=== PATIENT | female | born 1980 | race Caucasian/White ===

== ENCOUNTER 2021-02-07 16:05 | Inpatient (IN) | payer MEDICARE ==
[~2021-02-07] VITALS: Ht 165.1 cm; Wt 79.4 kg
[2021-02-07] MEDS ORDERED: COLACE100 MG PO (16:09)
[2021-02-07] MEDS ORDERED: NEURONTIN 300300 MG PO (16:09)
[2021-02-07] MEDS ORDERED: NEXIUM40 MG PO (16:10)
[2021-02-07] MEDS ORDERED: METHOCARBAMOL500 MG PO (16:10)
--- NOTE | 2021-02-07 16:15 | NUR ---
PATIENT ADMITED VIA AMBULANCE TO E9. PATIENT ANSWERS QUESTIONS BUT INFORMATION IS ONLY PARTIAL AND CONTRIDICTS ABOUT CURRENT CARE AND CIRCUMSTANCES. SENIOR LIVING PRESSURE INJURY TO COCCYX ASSESSED. NO DRESSING IN PLACE. LARGE AREA OF REDNESS WITH 2CM/1.5CM OPEN AREA 0.5CM DEEP WITH SLOUGHING SKIN. WOUND CULTURE OBTAINED. CLEANED WITH WOUND CLEANSER AND SACRAL MEPILEX APPLIED. PERINEAL AREA CLEANED OF MENSTRUAL FLUIDS. POSITION ON BACK.
[2021-02-07 17:48] LABS: BASOPHILS 0.2 % (0-2); EOSINOPHILS 0.4 % (0-7); HEMOGLOBIN 13.2 g/dL (12-16); IMMATURE GRANULOCYTES 0.5 % (0-5); LYMPHOCYTE ABS# 2.39 10x3/uL (1.18-3.74); LYMPHOCYTES 23.5 % (15-50); MCH 30.5 pg (26.0-34.0); MCHC 33.8 g/dL (31.0-37.0); MCV 90.1 fL (80.0-100.0); MEAN PLATELET VOLUME 10.4 fL (7.4-10.4); MONOCYTES 6.3 % (2-11); NEUTROPHIL ABS# 7.03 10x3/uL (1.56-6.13); NEUTROPHILS 69.1 % (40-80); PLATELET COUNT 252 10x3/uL (130-400); RBC 4.33 10x6/uL (4.00-5.40); RDW 12.6 % (11.5-14.5); WBC 10.2 10x3/uL (4.8-10.8)
--- NOTE | 2021-02-07 17:50 | NUR ---
MEDICATED FOR 10/10 RIGHT FRONTAL HEADACHE WITH MORPHINE 2 MG AND TORADOL IV. SWABS FOR FLU A&B, RSV, AND STREP OBTAINED AND SENT TO LAB.
[2021-02-07 17:57] LABS: APTT 25.1 SECONDS (22.8-39.4); INR 1.33 (0.85-1.17); PROTIME 15.2 SECONDS (11.6-15.0)
--- NOTE | 2021-02-07 18:00 | NUR ---
INDWELLING OWENS CATHETER REMOVED. NEW 16F CATHETER INSERTED. SCANT URINE RETURNED. CLAMPED TO OBTAIN URINE SPECIMEN.
--- NOTE | 2021-02-07 18:10 | NUR ---
TO CT VIA WHEELCHAIR.
[2021-02-07 18:16] LABS: CALC OSMOLALITY 278 mosm/kg (275-300); CARBON DIOXIDE 22.3 mmol/L (21.0-32.0); CHLORIDE - SERUM 105 mmol/L (98-107); CREATININE - SERUM 0.5 mg/dL (0.6-1.3); GLUCOSE 106 mg/dL (74-106); POTASSIUM - SERUM 3.5 mmol/L (3.5-5.1); SODIUM 140 mmol/L (136-145); UREA NITROGEN 12 mg/dL (7-18); eGFR NON AFRICAN AMERICAN > 90 mL/min (90-120)
[2021-02-07 18:19] LABS: ALBUMIN 3.5 g/dL (3.4-5.0); ALKALINE PHOSPHATASE 56 U/L (30-120); ALT (SGPT) 27 U/L (10-68); BILIRUBIN - TOTAL 0.73 mg/dL (0.2-1.3); MAGNESIUM - SERUM 2.1 mg/dL (1.8-2.4)
--- NOTE | 2021-02-07 18:30 | NUR ---
C/O RECURRENT HEADACHE 08/30. DR GREENBERG INFORMED. REPEAT DOSE OF MS 2MG ORDERED.
--- NOTE | 2021-02-07 18:55 | NUR ---
MS 2MG GIVEN IVP.
[2021-02-07 20:39] LABS: BILIRUBIN NEGATIVE (NEGATIVE); KETONE SMALL mg/dL (NEGATIVE); NITRITE NEGATIVE (NEGATIVE); UROBILINOGEN NORMAL mg/dL (< 2)
[2021-02-07 20:40] LABS: HCG URINE NEGATIVE (NEGATIVE)
[2021-02-07 20:43] LABS: BACTERIA FEW HPF (NONE SEEN); SQUAMOUS EPITHELIAL 0-5 HPF (0-4); WHITE CELLS - URINE 0-5 HPF (0-4)
--- NOTE | 2021-02-07 22:39 | NUR ---
REPORT GIVEN. ASSESSMENT COMPLETE. NO S/S OF DITRESS. LYING SUPINE. CLIR.
[2021-02-08 05:35] LABS: BASOPHILS 0.2 % (0-2); EOSINOPHILS 1.4 % (0-7); HEMATOCRIT 40.7 % (36.0-48.0); HEMOGLOBIN 13.4 g/dL (12-16); IMMATURE GRANULOCYTES 0.1 % (0-5); LYMPHOCYTES 35.9 % (15-50); MCH 29.9 pg (26.0-34.0); MCHC 32.9 g/dL (31.0-37.0); MCV 90.8 fL (80.0-100.0); MEAN PLATELET VOLUME 10.1 fL (7.4-10.4); MONOCYTES 6.7 % (2-11); NEUTROPHIL ABS# 5.12 10x3/uL (1.56-6.13); NEUTROPHILS 55.7 % (40-80); RBC 4.48 10x6/uL (4.00-5.40); RDW 12.7 % (11.5-14.5); WBC 9.2 10x3/uL (4.8-10.8)
[2021-02-08 05:36] LABS: PLATELET COUNT 311 10x3/uL (130-400)
[2021-02-08 05:41] VITALS: BP 158/80
[2021-02-08 05:59] LABS: ALBUMIN 3.5 g/dL (3.4-5.0); ALKALINE PHOSPHATASE 54 U/L (30-120); ALT (SGPT) 21 U/L (10-68); CALC OSMOLALITY 277 mosm/kg (275-300); CALCIUM 8.6 mg/dL (8.5-10.1); CARBON DIOXIDE 27.7 mmol/L (21.0-32.0); CHLORIDE - SERUM 106 mmol/L (98-107); GLUCOSE 94 mg/dL (74-106); POTASSIUM - SERUM 3.2 mmol/L (3.5-5.1); SODIUM 140 mmol/L (136-145); UREA NITROGEN 11 mg/dL (7-18); eGFR NON AFRICAN AMERICAN 84 mL/min (90-120)
[2021-02-08 06:09] LABS: CREATININE - SERUM 0.8 mg/dL (0.6-1.3)
--- NOTE | 2021-02-08 06:14 | NUR ---
ELECTROLYTE PROTOCOL WAS ENFORCED FOR LOW POTASSIUM LEVEL. PT GIVEN THE OPTION OF PO OR IV POTASSIUM. PT REFUSING POTASSIUM AT THIS TIME. PT STATES SHE WANTS TO SPEAK TO HER DOCTOR TODAY ABOUT HER POTASSIUM REPLACEMENT OPTIONS. CHARGE NURSE NOTIFIED. EDUCATION DONE WITH PATIENT ABOUT ELECTROLYTE REPLACEMENT, PT VERBALIZED UNDERSTANDING AND CONTINUES TO REFUSE REPLACEMENT.
--- NOTE | 2021-02-08 08:47 | NUR ---
4MG OF MORHINE GIVEN FOR PAIN LEVEL OF 8/10, ALSO GAVE 4MG OF ZOFRAN. WENT OVER PT'S HOME MEDICAITONS AND PT WAS NOT ABLE TO TELL ME WHEN SHE LAST TOOK THEM. PT ASKING FOR CLONAZEPAM TO HELP HER SLEEP, INFORMED HER THAT SHE DOES NOT HAVE THAT ORDERED AND ASKED HER IF SHE TAKES IT AT HOME AND SHE STATED NO. EDUCATED PT ON THE IMPORTANCE OF REPLACING K AND PT STILL REFUSING TO TAKE K UNTIL SHE TALKS TO DOCTOR. PT DERNIES ANY OTHER NEEDS AT THIS TIME. CALL LIGHT IN REACH, WILL CONTINUE PLAN OF CARE.
[2021-02-08 09:28] VITALS: BP 124/74
[2021-02-08 14:24] VITALS: BMI 29.1
[2021-02-08 16:32] VITALS: BP 136/72
--- NOTE | 2021-02-08 16:58 | NUR ---
GAVE NORCO FOR PAIN LEVEL OF 8/10, ALSO GAVE 2MG OF CLONAZEPAM. PT ASKING FOR CHAPSTICK. WENT TO GET HER CHAPSTICK AND GET HER ANTIBIOTIC, WHEN I WENT BACK TO THE ROOM, PT'S CALL LIGHT WAS GOING OFF AGAIN, ASKED HER IF SHE FORGOT THAT I WAS COMING BACK AND SHE STATED " I NEED MY PAIN MEDICATIONS." INFORMED HER THAT I HAD JUST GIVING HER NORCO AND PT STATED " NO YOU GAVE ME CLONAZEPAM AND MY MUSCLE RELAXER." ONCE AGAIN I TRIED TO EXPLAIN TO PT THAT WHAT I GAVE HER WAS HER CLONAZEPAM AND NORCO, EVEN SHOWED PT THE EMPTY PILL PACKAGES AND PT STILL SET ON THAT I DID NOT GIVE HER ANY PAIN MEDICATION. WILL HAVE ANOTHER NURES COME VERIFY THAT I DID GIVE HER NORCO AND CLONAZEPAM. I SOON I WALKED OUT OF THE ROOM, PT TURNED HER CALL LIGHT BACK ON.
--- NOTE | 2021-02-08 17:51 | NUR ---
NOTIFIED DR. LIAO THAT PT DOES NOT LIKE ALTERNATING PAIN MEDICATIONS, ONLY WANTS TO HAVE IV PAIN MEDICATIONS, ASKED HIM WHAT HE WANTED TO DO? IF HE WANTED TO D/C MORPHINE AND JUST GIVE NORCO. PER DR. AGUILAR KEEP BOTH MORPHINE AND NORCO AND JUST ORDER NARCAN, AND 40MG OF PROTONIX ONE TIME DOSE AT BEDTIME.
--- NOTE | 2021-02-08 18:48 | NUR ---
GAVE 4MG OF MORPHINE FOR PAIN LEVEL OF 10/10, ALSO GAVE 4MG OF ZOFRAN. PT ASKING FOR FLASHLIGHT, INFORMED HER THAT WE DO NOT HAVE ANY FLASHLIGHTS. PT ALSO STATES THAT SHE WANTS SOMETHING FOR ITCHING.
--- NOTE | 2021-02-08 19:24 | NUR ---
PATIENT RESTING IN BED WITH NO S/S OF DISTRESS. PATIENT REQUESTED PAIN MEDICATION. I NOTIFIED THE PATIENT THAT SHE DID NOT HAVE MORPHINE OR NORCO AVAILABLE AT THIS TIME. PATIENT STATED THAT THE PREVIOUS NURSE DID NOT GIVE HER PAIN MEDICATION TO HER. I PULLED UP THE PATIENT'S MAR AND SHOWED HER WHERE HER MEDICATION WAS GIVEN. I EXPLAINED TO THE PATIENT THAT THE MEDICATION WAS PULLED FROM THE PYXIS AND SCANNED IN HER ROOM. THE PATIENT STATED THAT SHE KNOWS THE PAIN MEDICATIONS WERE SCANNED BUT SHE KNOWS THE NURSE DID NOT ADMINISTER THEM AND SHE KNOWS HOW SHE DID IT. I AGAIN ASKED THE PATIENT WHY SHE THOUGHT THE MEDICATION WAS NOT ADMINISTERED. THE PATIENT STATED, THAT IS BETWEEN ME AND ADMINISTRATION, NOT ME AND YOU. PATIENT THEN STATED SHE WANTS TO SPEAK TO THE MEAT MOLDER.
--- NOTE | 2021-02-08 19:27 | NUR ---
SPOKE WITH COLT CARRIONMILL MACHINIST IN REGARDS TO PATIENT REQUEST TO SPEAK WITH OFFSHORE WIND TURBINE TECHNICIAN.
--- NOTE | 2021-02-08 19:42 | NUR ---
BROUGHT PATIENT A NATASHAON LOPEZ AND PAULO PER HER REQUEST.
[2021-02-08 20:30] VITALS: BP 100/54
--- NOTE | 2021-02-08 21:00 | NUR ---
ADMINISTERED MEDS PER ORDERS. PATIENT DALJIT WELL. ENCOURAGED PATIENT TO CALL WITH NEEDS.
[2021-02-09 00:30] VITALS: BP 102/52
[2021-02-09 04:30] VITALS: BP 114/57
[2021-02-09 05:42] LABS: BASOPHILS 0.7 % (0-2); EOSINOPHILS 5.6 % (0-7); HEMATOCRIT 36.2 % (36.0-48.0); HEMOGLOBIN 11.8 g/dL (12-16); IMMATURE GRANULOCYTES 0.3 % (0-5); LYMPHOCYTE ABS# 3.16 10x3/uL (1.18-3.74); LYMPHOCYTES 42.3 % (15-50); MCH 30.1 pg (26.0-34.0); MCHC 32.6 g/dL (31.0-37.0); MCV 92.3 fL (80.0-100.0); MONOCYTES 7.8 % (2-11); NEUTROPHIL ABS# 3.24 10x3/uL (1.56-6.13); NEUTROPHILS 43.3 % (40-80); RBC 3.92 10x6/uL (4.00-5.40); WBC 7.5 10x3/uL (4.8-10.8)
[2021-02-09 05:45] LABS: PLATELET COUNT 244 10x3/uL (130-400)
[2021-02-09 05:47] LABS: CALC OSMOLALITY 280 mosm/kg (275-300); CALCIUM 8.6 mg/dL (8.5-10.1); CARBON DIOXIDE 26.2 mmol/L (21.0-32.0); CHLORIDE - SERUM 107 mmol/L (98-107); CREATININE - SERUM 0.7 mg/dL (0.6-1.3); GLUCOSE 93 mg/dL (74-106); POTASSIUM - SERUM 3.1 mmol/L (3.5-5.1); SODIUM 141 mmol/L (136-145); UREA NITROGEN 13 mg/dL (7-18); eGFR NON AFRICAN AMERICAN > 90 mL/min (90-120)
--- NOTE | 2021-02-09 06:10 | NUR ---
PATIENT SLEEPING AT THIS TIME. WOKE PATIENT TO ATTEMPT TO GIVE PROTONIX AND CARAFATE. PATIENT REFUSED BOTH MEDS. I ASKED PATIENT IF I COULD CHECK HER TO MAKE SURE SHE IS CLEAN AND DRY, PATIENT STATED "NO" AND CLOSED HER EYES.
--- NOTE | 2021-02-09 08:20 | NUR ---
INTITIAL ROUNDS- PT RESTING COMFORTABLY WITH HER EYES CLOSED, WILL AROUSE TO VOICE BUT THEN FALL BACK TO SLEEP. PT ASKING FOR PAIN MEDICATIONS BUT SHE IS STILL TOO DROWSY FROM NIGHT TIME MEDICATIONS. OWENS DRAINING YELLOW URINE TO GRAVITY. LT AC IV INFUSING NS AT KVO. WILL HOLD AM MEDICATIONS UNTIL BECOMES MORE AWAKE. CALL LIGHT IN REACH.
[2021-02-09 08:21] VITALS: BP 120/68
[2021-02-09 11:28] VITALS: BP 138/84
[2021-02-09 13:40] VITALS: Ht 165.1 cm; Wt 79.4 kg
--- NOTE | 2021-02-09 14:37 | NUR ---
4MG OF MORPHINE GIVEN FOR PAIN LEVEL OF 8/10. ALSO GAVE 4MG OF ZOFRAN AND AM MEDS. MORNING MEDS LATE DUE TO PT BEING TOO DROWSY. PT DENIES ANY OTHER NEEDS AT THIS TIME. CALL LIGHT IN REACH.
[2021-02-09 16:01] VITALS: BP 132/67
--- NOTE | 2021-02-09 18:59 | NUR ---
4MG OF MORPHINE GIVEN FOR PAIN LEVEL OF 9/10. ALSO GAVE 4MG OF ZOFRAN. PT DENIES ANY OTHER NEEDS AT THIS TIME. CALL LIGHT IN REACH.
--- NOTE | 2021-02-09 19:47 | NUR ---
RECIEVED UP IN BED WITH EYES OPEN. ALERT AND ORIENTED X4. REMAINS BEDFAST. IV TO LT AC SL. DSG TO COCCYX. SCD'S IN PLACE. DENIES ANY NEEDS AT THIS TIME.
[2021-02-09 20:05] VITALS: BP 123/65
[2021-02-10] VITALS (7 sets, daily range): BP systolic 93–128; BP diastolic 49–76
--- NOTE | 2021-02-10 | NUR ---
PT REQUESTED THIS NURSE CALL MD TO GET HER SOME ATIVAN BECAUSE SHE COULD NOT SLEEP. SPOKE WITH DR. GARZON WHO HAD SOME CONCERN D/T HER HAVING BACLOPHEN AND MORPHINE AT 2230. GAVE ORDER FOR ATIVAN 0.5 MG TO BE GIVEN AT 0200. EXPLAINED TO PT AND SHE BECAME UPSET AND SAID " I'VE BEEN STAREING AT NOTHING AND I CAN'T FALL ASLEEP". EXPLAINED SHE COULD WATCH TV. STATED "IT GIVES ME A HEADACHE". EXPLAINED THAT WAS THE ORDER GIVEN.
[2021-02-10 05:24] LABS: BASOPHILS 0.4 % (0-2); EOSINOPHILS 3.7 % (0-7); HEMATOCRIT 34.7 % (36.0-48.0); HEMOGLOBIN 11.2 g/dL (12-16); IMMATURE GRANULOCYTES 0.1 % (0-5); LYMPHOCYTE ABS# 2.78 10x3/uL (1.18-3.74); LYMPHOCYTES 36.2 % (15-50); MCH 29.2 pg (26.0-34.0); MCHC 32.3 g/dL (31.0-37.0); MCV 90.6 fL (80.0-100.0); MEAN PLATELET VOLUME 9.3 fL (7.4-10.4); MONOCYTES 8.7 % (2-11); NEUTROPHILS 50.9 % (40-80); PLATELET COUNT 228 10x3/uL (130-400); RBC 3.83 10x6/uL (4.00-5.40); RDW 12.9 % (11.5-14.5); WBC 7.7 10x3/uL (4.8-10.8)
[2021-02-10 05:41] LABS: ANION GAP 12.1 mmol/L (8-16); CALCIUM 8.2 mg/dL (8.5-10.1); CARBON DIOXIDE 25.7 mmol/L (21.0-32.0)
[2021-02-10 05:58] LABS: CREATININE - SERUM 0.9 mg/dL (0.6-1.3); POTASSIUM - SERUM 2.8 mmol/L (3.5-5.1)
--- NOTE | 2021-02-10 09:42 | NUR ---
PT GIVEN AM MEDS PER EMARINCLUDING PRN MEDICATION. PT AWAKE AND ALERT, ASKS FOR KLONIPIN, SPOKE WITH PT D/T MEDICATION GIVEN I CANNOT GIVE IT ALSO. PT STATES UNDERSTANDING. POTASSIUM GIVEN WITH APPLESAUCE. PT REPOSTIONED. NO FURTHER NEEDS VOICED. CLWR.
--- NOTE | 2021-02-10 21:24 | NUR ---
REPORT RECEIVED WILL CONT POC. PT A&O, LYING IN BED. NO S/S OF DISTRESS OBSERVED. RR EVEN AND UNLABORED ON RA. PT ASKS FOR PAIN MED. LAST PAIN MED GIVEN AT 1600. EXPLAINED TO PT THAT THIS NURSE COULD NOT ADMIN ANOTHER PAIN MED DOSE UNTIL 2200. PT STATED UNDERSTANDING. BED LOCKED AND LOWERED, CL IN REACH. ASSESSMENT COMPLETED AT THIS TIME. WILL CONT TO MONITOR.
[2021-02-11 01:46] VITALS: BP 126/73
--- NOTE | 2021-02-11 04:32 | NUR ---
ANSWERED PTS CL. PT ASKED FOR HER PAIN MEDICATION. INFORMED PT THAT THIS NURSE GAVE TORADOL AT 0001 AND MORPHINE AT 0208. PT STATED THAT THIS NURSE NEVER GAVE HER MEDICATION AT 0200 AND THAT THIS NURSE GAVE HER TORADOL AT 0100. REMINDED PT THAT THIS NURSE BROUGHT A WITNESS IN THE ROOM WITH EACH MED ADMINISTRATION. PT STATED THAT THIS NURSE WAS LYING AND DID NOT GIVE HER MORPHINE AT 0200. REMINDED PT THAT DARREN JAMES WITNESSED THIS NURSE GIVING TORADOL AT 0001 AND JAMILA SOLOMON RN WITNESSED THIS NURSE GIVING MORPHINE AT 0208. TOLD PT THAT THIS NURSE WOULD GIVE NORCO IN 1 HOUR FOR BREAK THROUGH PAIN UNTIL PT COULD HAVE MORPHINE AGAIN AT 0600. PT STATED THAT THIS NURSE WAS LYING TO HER, STATED SHE WANTED TO SPEAK WITH THE MD AND THAT SHE DID NOT WANT TO SEE THIS NURSE. MADE CHARGE NURSE AWARE OF THE SITUATION. CHARGE NURSE, JAMILA SOLOMON RN, SPOKE WITH PT AND EXPLAINED THAT HER MEDICATIONS WERE GIVEN PER EMAR AND WITNESSED BY OTHER STAFF. CHARGE NURSE EXPLAINED SHE COULD HAVE A NORCO UNTIL MORPHINE WAS DUE. PT REFUSED TO CONVERSE WITH CHARGE, STATED THIS NURSE HAS NOT BEEN GIVING THE PT HER MEDS. CHARGE NURSE STATED THAT SHE WITNESSED THIS NURSE GIVING HER MORPHINE AT 0208 AND THAT SHE HAS BEEN RUDE AND HATEFUL TO THIS NURSE AND THE CHIEF PORT DIRECTOR. PT STATED SHE HAD NOT BEEN RUDE OR HATEFUL AND STATED THAT SHE "HAS MANNERS". REMINDED PT THAT SHE STATED THIS NURSE WAS "BEING A BITCH". PT STATED "BC YOU WERE BEING ONE". PT STATED THIS NURSE WAS A BITCH BC WHEN ATTEMPTING TO TAKE A BP ON PTS LEFT ARM BEFORE ADMINISTERING MORPHINE AT 0208, PT STATED THIS NURSE COULD NOT DO SO BC SHE DID NOT WANT THIS NURSE TO "FUCK UP MY IV". EXPLAINED TO PT THAT THE CUFF WOULD NOT BE ON HER IV, THAT HER IV WAS CLAMPED AND NOT RUNNING ANY MEDS BUT THAT IT WAS OKAY FOR US TO USE THE OTHER ARM. AT THAT POINT IN THE CONVERSATION, PT STATED "YOU DON'T HAVE TO BE BITCH." EXPLAINED TO PT THAT THIS NURSE WAS NOT TRYING TO BE RUDE AND THAT THIS NURSE HAD NO PROBLEM USING THE OTHER ARM. CHARGE NURSE CONTACTED FARMWORKER [employer]STOCK, DARREN DE LOS SANTOS, WHO CAME TO SPEAK WITH PATIENT AND EXPLAINED THAT HER MEDICATIONS WERE GIVEN PER EMAR AND WITNESSED BY OTHER TRANSPORTATION MODELER. DARREN DE LOS SANTOS ALSO TOLD PT THAT THIS NURSE COULD GIVE THE PT A NORCO UNTIL HER MORPHINE WAS DUE AT 0600. PT CONT TO BE ARGUMENTATIVE AND CLAIMED THIS NURSE WAS LYING. PT AGREED TO TAKE THE NORCO. BP 117/76 RR 16 HR 62 O2 98 BEFORE GIVING NORCO. WILL CONT TO MONITOR.
[2021-02-11 05:40] VITALS: BP 117/76
[2021-02-11 06:01] LABS: BASOPHILS 0.5 % (0-2); EOSINOPHILS 4.5 % (0-7); HEMATOCRIT 35.1 % (36.0-48.0); HEMOGLOBIN 11.2 g/dL (12-16); IMMATURE GRANULOCYTES 0.2 % (0-5); LYMPHOCYTE ABS# 3.81 10x3/uL (1.18-3.74); LYMPHOCYTES 47.4 % (15-50); MCH 29.4 pg (26.0-34.0); MCHC 31.9 g/dL (31.0-37.0); MCV 92.1 fL (80.0-100.0); MEAN PLATELET VOLUME 10.1 fL (7.4-10.4); MONOCYTES 7.2 % (2-11); NEUTROPHIL ABS# 3.22 10x3/uL (1.56-6.13); NEUTROPHILS 40.2 % (40-80); PLATELET COUNT 258 10x3/uL (130-400); RBC 3.81 10x6/uL (4.00-5.40)
--- NOTE | 2021-02-11 06:03 | NUR ---
ADMINISTERED PROTONIX AND MORPHINE PER EMAR ORDERS. KAREN MORA, RN WITNESS MEDICATION ADMINISTRATION. ASKED PT IF SHE NEEDED ANYTHING AT THIS TIME. PT DENIES NEEDS AT THIS TIME.
[2021-02-11 06:26] LABS: CALC OSMOLALITY 275 mosm/kg (275-300); CALCIUM 8.2 mg/dL (8.5-10.1); CARBON DIOXIDE 28.2 mmol/L (21.0-32.0); CHLORIDE - SERUM 106 mmol/L (98-107); CREATININE - SERUM 0.8 mg/dL (0.6-1.3); GLUCOSE 105 mg/dL (74-106); POTASSIUM - SERUM 3.4 mmol/L (3.5-5.1); SODIUM 139 mmol/L (136-145); UREA NITROGEN 8 mg/dL (7-18); eGFR NON AFRICAN AMERICAN 84 mL/min (90-120)
[2021-02-11 07:54] VITALS: BP 120/67
[2021-02-11 11:32] VITALS: BP 108/62
--- NOTE | 2021-02-11 15:28 | NUR ---
DR TATE TO CALL TO SEE IF WE COULD CONSULT ADMIN. OR ETHICS COMMITTEE R/T PATIENT REFUSES TO LET US TAKE HER INFILTRATED IV OUT, REFUSED DURAGESIC PATCH AND ORAL MEDS (THAT HAVE BEEN CHANGED PER HER REQUEST), REFUSED THERAPY AND HAD FIRED ALL STAFF EMBERS. I TALKED TO MOSES IN ADMIN AND ASKED ABOUT THESE CONSULTS. TYRELL HERRON, DON IS TO CALL ME BACK.
--- NOTE | 2021-02-11 15:29 | NUR ---
1200-- CONTACTED DR LIAO REGARDING PT REFUSING TO HAVE AN IV INSERTED AFTER HERS INFILTRATED TO LEFT AC. PT REQUESTED TO HAVE A CENTRAL LINE PLACED. ROCEPHIN CHANGED TO IM. 1500--BRYAN BANKS & I WENT TO PT ROOM TO GIVE HER PAIN MEDS, AFTER OPENING THE OXYCODONE, GABAPENTIN AND KLONOPIN PT THEN REFUSED TO TAKE ANY OF THEM. WASTED IN PYXIS. FENTANYL, ROCEPHIN, LIDOCAINE & LACTULOSE RETURNED TO PYXIS. CONTACTED DR LIAO & LET HIM KNOW ABOUT REFUSAL OF MEDICATIONS. HAD BRYAN BANKS ALSO ATTEMPT TO FLUSH IV TO LEFT AC & WAS UNABLE TO. ATTEMPTED TO REMOVE IV & PT JERKED HER ARM AWAY & STATED THAT IT WORKS PERFECTLY FINE. PT ALSO STATED THAT SHE DIDN'T WANT TO SEE ME IN HER ROOM ANY MORE.
--- NOTE | 2021-02-11 16:42 | NUR ---
1550-ASHLY NOE AND MYSELF IN ROOM TO TALK TO PATIENT R/T CARE, PO AND VERENICE SZYMANSKI, WHERE SHE CAME FROM, PAST HISTORY, WHO CARES FOR HER. SPENT TOTAL OF 30 MIN AND PATIENT ASKED US TO FINALLY LEAVE THE ROOM. NOTHING WAS ACCOMPLISHED.
--- NOTE | 2021-02-11 17:07 | NUR ---
Late entry Diamond Bernard and Jose vistied with patient concerning her refusal of all treatment. Patient is vague, unwilling to disclose prior medical treatment, physicians, pharmacies, or place of residence and/or family/caregivers. Aggitated, wanting med flight to take her to [facility] in [place]. States "if I knew who she was I could make it happen". Patient was previously treated in [facility] was [facility] for her care but was unable to locate her residence prior to her coming to [facility] via ambulance. Also states she [facility] to [facility] but did not have transportation to get there. Spoke with Dr. Curry who has agreed for psych consult and discontinue all IV meds and IV needs to be removed. Also notified Diamond Avelar CM
--- NOTE | 2021-02-11 18:20 | MORECARE ---
CASE MANAGEMENT DISCHARGE SUMMARY PATIENT: MAINE FELIX UNIT: [id number] ADM DATE: 02/07/21 AGE: 40 : 78 SEX: F ROOM/BED: D[facility] AUTHOR: ZULEMA,DOC PHYSICIAN: REFERRING PHYSICIAN: YOLY LIAO MD DATE OF SERVICE: 02/11/21 Case Management Discharge Planning Summary COMMENTS ENTERED DATE: 02/10/21 16:25 CT COMMENT TYPE: Discharge Planning REVIEWER: Shirin Avelar CM spoke with Van, he states that patient was given a power chair 2 years ago, but he will follow up with her about it. [phone]. DCP REVIEW SUMMARY ANTICIPATED D/C DATE: EXPECTED LOS : CASE STATUS: DCP Initiated INITIAL REVIEW: 02/07/2021 INITIAL REVIEWER: Kirsten Harris FINAL DISCHARGE DISPOSITION: : FINAL REVIEWER: FINAL REVIEW DATE: DCP Focus Questions & Answers DCP REV -DCP Review Added on: 02/11/21 6:19 pm QUESTION: ANSWER DCP Screen High Risk Factors: : Poor social support DCP Evaluation Patient's ability to cope with chronic illness : d. No chronic illness Mental health screen: : No mental health history Would patient like to participate in any Care Coordination programs (if applicable): : Not applicable DCP Re-evaluation Would patient like to participate in any Care Coordination programs (if applicable): : Not applicable PATIENT: MAINE FELIX ENCOUNTER: [id number] MEDICAL RECORD#: [id number] ADMISSION DATE: 02/07/2021 DISCHARGE DATE: ATTENDING MD: YOLY RODRIGES : AGE: 40 MARITAL STATUS: S DC PLAN ID: [id number] FACILITY: [facility] PRINTED ON: 02/11/21 18:19 CT All edits/amendments must be made on the electronic document DICTATION DATE: 02/11/211818 TUBE BUILDER AIRPLANE: TREVON 02/11/211818 RPT#: [id number] DC DATE: STATUS: ADM IN [facility] [address] [place] [address] END OF REPORT
--- NOTE | 2021-02-11 18:31 | MORECARE ---
CASE MANAGEMENT DISCHARGE SUMMARY PATIENT: MAINE FELIX UNIT: [id number] ADM DATE: 02/07/21 AGE: 40 : 79 SEX: F ROOM/BED: D.7064 AUTHOR: ZULEMA,DOC PHYSICIAN: REFERRING PHYSICIAN: YOLY LIAO MD DATE OF SERVICE: 02/11/21 Case Management Discharge Planning Summary COMMENTS ENTERED DATE: 02/10/21 16:25 CT COMMENT TYPE: Discharge Planning REVIEWER: Shirin Avelar CM spoke with Van, he states that patient was given a power chair 2 years ago, but he will follow up with her about it. Van from [facility] number is [phone]. DCP REVIEW SUMMARY ANTICIPATED D/C DATE: EXPECTED LOS : CASE STATUS: DCP Initiated INITIAL REVIEW: 02/07/2021 INITIAL REVIEWER: Kirsten Harris FINAL DISCHARGE DISPOSITION: : FINAL REVIEWER: FINAL REVIEW DATE: DCP Focus Questions & Answers DCP REV -DCP Review Added on: 02/11/21 6:19 pm QUESTION: ANSWER DCP Screen High Risk Factors: : Poor social support DCP Evaluation Patient's ability to cope with chronic illness : c. Inadequate (3+ ED visits in 6 mos., readmits within 30 days, 2+ hospital admissions in 1 yr.) Mental health screen: : No mental health history Would patient like to participate in any Care Coordination programs (if applicable): : Not applicable Patient gives permission to discuss discharge plans with: (name, relationship and number) : refused to give contact information Physical Status: : Compromised skin integrity Physical Status: : Indwelling urinary catheter Physical Status: : Mobility impaired Partial Dependence, assistance required for: : Ambulation / Mobility Baseline cognitive status: : *Oriented to person, place, situation, time and present Living arrangements comments: : states lives with family / friends Medication Management: : Patient states can read and understand medication labels Pharmacy name(s): : [facility] Other Equipment comments: : POWER W/C, 2 MANUAL W/C Equipment agency name and contact information: : [facility]? Resources / Services in place: : [facility] on aging Resources / Services in place: : Home health Resources / Services in place: : Wound Care Problems identified by the patient regarding discharge: : SPINAL CORD COMISSION - FOR NEW EQUIPMENT Patient's current cognitive status: : *Oriented to person, place, situation, time and present Functional screen assessment: : Unable to manage ADLs without immediate ongoing assistance Patient with capacity for self-care or can be cared for in same environment as prior to hospitalization? : No Preadmission facility can/cannot provide post hospital level of care needs: : Can - at higher level of care than preadmission Results of this evaluation have been discussed with: : Patient Physical environment modification needed / anticipated for discharge: : Yes DCP Re-evaluation Would patient like to participate in any Care Coordination programs (if applicable): : Not applicable PATIENT: MAINE FELIX ENCOUNTER: [id number] MEDICAL RECORD#: [id number] ADMISSION DATE: 02/07/2021 DISCHARGE DATE: ATTENDING MD: YOLY RODRIGES : AGE: 40 MARITAL STATUS: S DC PLAN ID: [id number] FACILITY: [facility] PRINTED ON: 02/11/21 18:31 CT All edits/amendments must be made on the electronic document DICTATION DATE: 02/11/211830 FISHER NET: TREVON 02/11/211830 RPT#: [id number] DC DATE: STATUS: ADM IN [facility] [address] [place] [address] END OF REPORT
--- NOTE | 2021-02-11 18:53 | MORECARE ---
CASE MANAGEMENT DISCHARGE SUMMARY PATIENT: MAINE FELIX UNIT: [id number] ADM DATE: 02/07/21 AGE: 40 : 78 SEX: F ROOM/BED: D.6541 AUTHOR: ZULEMA,DOC PHYSICIAN: REFERRING PHYSICIAN: YOLY LIAO MD DATE OF SERVICE: 02/11/21 Case Management Discharge Planning Summary COMMENTS ENTERED DATE: 02/11/21 18:36 CT COMMENT TYPE: Discharge Planning REVIEWER: Kirsten Harris LATE ENTRY 02/09/21 CM spoke with patient at [facility]. Patient was very reluctant to give any information to CM. She would not give any contact information for emergency contact. She stated that she lives with someone or some people but wouldn't state whom or if she had 24 hr care. She stated that she was suppose to have [facility] but they couldn't find where she lives. She states that her home health was through [facility] (? [facility] She states that she was in the [facility] within the last 3 weeks for the same issue. Patient did state that the last facility that she was at was in [place], [place]. She states that she has been in a facility in [facility] before. Patient wants CM to get the spinal cord commission to get her some new equipment. Including boots, electric wheelchair and other equipment. CM called and left a message at [facility] [phone] per patients request. Patient would not give CM and answer on what her discharge plan is. Whether she plans to return to her home or if she wants placement when discharged. CM will continue to follow and assist as needed with discharge planning / needs. ENTERED DATE: 02/10/21 16:25 CT COMMENT TYPE: Discharge Planning REVIEWER: Shirin Avelar CM spoke with Van, he states that patient was given a power chair 2 years ago, but he will follow up with her about it. Van from spinal cord commissions number is [phone]. WYP REVIEW SUMMARY ANTICIPATED D/C DATE: EXPECTED LOS : CASE STATUS: DCP Initiated INITIAL REVIEW: 02/07/2021 INITIAL REVIEWER: Kirsten Harris FINAL DISCHARGE DISPOSITION: : FINAL REVIEWER: FINAL REVIEW DATE: DCP Focus Questions & Answers DCP REV -DCP Review Added on: 02/11/21 6:19 pm QUESTION: ANSWER DCP Screen High Risk Factors: : Poor social support DCP Evaluation Patient's ability to cope with chronic illness : c. Inadequate (3+ ED visits in 6 mos., readmits within 30 days, 2+ hospital admissions in 1 yr.) Mental health screen: : No mental health history Would patient like to participate in any Care Coordination programs (if applicable): : Not applicable Patient gives permission to discuss discharge plans with: (name, relationship and number) : refused to give contact information Physical Status: : Compromised skin integrity Physical Status: : Indwelling urinary catheter Physical Status: : Mobility impaired Partial Dependence, assistance required for: : Ambulation / Mobility Baseline cognitive status: : *Oriented to person, place, situation, time and present Living arrangements comments: : states lives with family / friends Medication Management: : Patient states can read and understand medication labels Pharmacy name(s): : [facility] Other Equipment comments: : POWER W/C, 2 MANUAL W/C Equipment agency name and contact information: : [facility]? Resources / Services in place: : [facility] on aging Resources / Services in place: : Home health Resources / Services in place: : Wound Care Problems identified by the patient regarding discharge: : SPINAL CORD COMISSION - FOR NEW EQUIPMENT Patient's current cognitive status: : *Oriented to person, place, situation, time and present Functional screen assessment: : Unable to manage ADLs without immediate ongoing assistance Patient with capacity for self-care or can be cared for in same environment as prior to hospitalization? : No Preadmission facility can/cannot provide post hospital level of care needs: : Can - at higher level of care than preadmission Results of this evaluation have been discussed with: : Patient Physical environment modification needed / anticipated for discharge: : Yes DCP Re-evaluation Would patient like to participate in any Care Coordination programs (if applicable): : Not applicable PATIENT: MAINE FELIX ENCOUNTER: [id number] MEDICAL RECORD#: [id number] ADMISSION DATE: 02/07/2021 DISCHARGE DATE: ATTENDING MD: YOLY RODRIGES : AGE: 40 MARITAL STATUS: S DC PLAN ID: [id number] FACILITY: [facility] PRINTED ON: 02/11/21 18:53 CT All edits/amendments must be made on the electronic document DICTATION DATE: 02/11/211852 GRINDER SETUP OPERATOR: TREVON 02/11/211852 RPT#: [id number] DC DATE: STATUS: ADM IN [facility] [address] [place] [address] END OF REPORT
--- NOTE | 2021-02-11 19:00 | NUR ---
NOTIFIED DR LIAO OF KUB RESULTS, HE RECOMMENDED TO GIVE PT AN ENEMA D/T CONSTIPATION. OFFERED TO PT/ REFUSED BY PT
--- NOTE | 2021-02-11 19:51 | NUR ---
PT REFUSED ASSESSMENT. PT C/O 08/30 COCCYX PAIN. PATIENT AGREED TO TAKE PAIN MEDS THAT SHE REFUSED EARLIER TODAY ON DAYSHIFT. PT OFFERED COLACE, DULCOLAX, AND LACTULOSE TO ASSIST WITH BOWEL MOVEMENT BUT PT REFUSED TWICE. WITNESS SAUNDRA MARION PRESENT DURING ENCOUNTER WITH PATIENT INCLUDING MED PASS. PT REQUESTED THE KLONOPIN, OXYCODONE, AND FENTONYL PATCH SHE REFUSED ON DAYSHIFT. FENTONYL PATCH APPLIED TO LEFT CHEST PER PATIENTS REQUEST AND COVERED WITH A TEGADERM PT REQUESTED. RN OFFERED TO REMOVE IV THAT IS INFILTRATED, PT REFUSED TO HAVE IT REMOVED. PT LAYING SUPINE IN BED, REFUSED TO BE TURNED. PT AWAKE AND ALERT AND ORIENTED X4 WITH FLAT AFFECT. NO SIGNS OF DISTRESS. PT ON ROOM AIR AND APPEARS TO BE COMFORTABLE AT THIS TIME.
--- NOTE | 2021-02-11 23:45 | NUR ---
PT ASKED PROFESSIONAL DRIVER IF SHE CAN HAVE MORE PAIN MEDICATION. PROFESSIONAL DRIVER ASKED ME AND WE TOLD HER THAT SHE CANNOT HAVE HER NEXT DOSE UNTIL 0145 AM. PT VERBALIZED UNDERSTANDING.
[2021-02-12 01:08] VITALS: BP 137/83
--- NOTE | 2021-02-12 01:46 | NUR ---
PT GIVEN PRN OXYCODONE IR 10MG PER HER REQUEST FOR 10/10 COCCYX PAIN. WITNESS WAS SAUNDRA MARION. NO ADDITIONAL NEEDS AT THIS TIME.
[2021-02-12 05:33] VITALS: BP 120/70
--- NOTE | 2021-02-12 06:02 | NUR ---
PT ASKED THE FLOUR INSPECTOR TO GET HER RN. RN ENTERED THE ROOM AND PATIENT ASKED WHAT TIME SHE CAN HAVE HER PAIN MEDICATION. RN REPLIED WITH 0745. PT ASKED WHY SO LONG. RN REPLIED THAT HER PAIN MEDICATION WAS ORDERED EVERY 6 HOURS NEEDED. RN ASKED IF PT WANTED ME TO WRITE THE TIME ON THE WHITE BOARD, PT SAID NO SHE CAN REMEMBER THE TIME. PT STATES SHE WANTS TO SEE THE DOCTOR FIRST THING IN THE MORNING AND WOULD LIKE TO BE SENT TO A DIFFERENT HOSPITAL. WILL PASS ON TO NEXT SHIFT.
[2021-02-12 07:02] LABS: CALC OSMOLALITY 278 mosm/kg (275-300); CALCIUM 8.5 mg/dL (8.5-10.1); CARBON DIOXIDE 26.5 mmol/L (21.0-32.0); CHLORIDE - SERUM 106 mmol/L (98-107); CREATININE - SERUM 0.7 mg/dL (0.6-1.3); GLUCOSE 128 mg/dL (74-106); POTASSIUM - SERUM 3.4 mmol/L (3.5-5.1); SODIUM 140 mmol/L (136-145); UREA NITROGEN 6 mg/dL (7-18); eGFR NON AFRICAN AMERICAN > 90 mL/min (90-120)
--- NOTE | 2021-02-12 07:13 | NUR ---
RECEIVE SHIFT REPORT. RESTING IN BED WITH LIGHTS OFF. STATING PAIN 10/10. NOT TIME FOR PAIN MEDICATION AGAIN. WILL CONTINUE POC AND SAFETY PRECAUTIONS.
[2021-02-12 07:22] LABS: BASOPHILS 0.3 % (0-2); HEMATOCRIT 36.2 % (36.0-48.0); HEMOGLOBIN 11.8 g/dL (12-16); IMMATURE GRANULOCYTES 0.3 % (0-5); LYMPHOCYTE ABS# 3.52 10x3/uL (1.18-3.74); LYMPHOCYTES 44.1 % (15-50); MCHC 32.6 g/dL (31.0-37.0); MCV 92.1 fL (80.0-100.0); MEAN PLATELET VOLUME 10.1 fL (7.4-10.4); MONOCYTES 4.6 % (2-11); NEUTROPHIL ABS# 3.73 10x3/uL (1.56-6.13); NEUTROPHILS 46.7 % (40-80); PLATELET COUNT 272 10x3/uL (130-400); RBC 3.93 10x6/uL (4.00-5.40); RDW 12.8 % (11.5-14.5)
--- NOTE | 2021-02-12 08:00 | NUR ---
REFUSED STOOL SOFTNER. STATES SHE DOES NOT WANT TO DEAL WITH THE PAIN OF BOWEL MOVEMENTS. EDUCATED ON HOW BEING CONSTIPATED WILL CAUSE HER PAIN AND SHE MIGHT FEEL RELIEF IF SHE WERE TO GO TO THE BATHROOM. PATIENT STILL REFUSES.
[2021-02-12 09:57] VITALS: BP 109/64
--- NOTE | 2021-02-12 10:27 | NUR ---
OT NOTE: PT REFUSED THERAPY SERVICES. PT STATED NO MEDS GIVEN THIS AM. NOTIFIED NURSING STAFF. THANK YOU,DEBBIE CANTRELL
--- NOTE | 2021-02-12 12:36 | NUR ---
Nutrition Follow-up: Ate 75% of breakfast this AM. Diet: Regular, Judah BID No new wt; last wt: 175# (02/09) Labs noted: K+ 3.4, Glu 128 Meds noted: Protonix, Colace, electrolyte protocol -Encourage PO intake and honor food preferences. -Continue Judah BID to promote wound healing. -Monitor wt. - follow-up: 02/17
[2021-02-12 12:42] VITALS: BP 117/72
--- NOTE | 2021-02-12 16:20 | NUR ---
PATIENT ASKED FOR PHONE BOOK. SEARCHED AND ONE WAS NOT FOUND. ASKED [facility] AND SHE SAID WE DO NOT HAVE THOSE ANYMORE. TOLD PATIENT AND SHE SAID SHE WOULD LIKE A INTERMODAL DISPATCHER. CALLED ADMINISTRATION AND WAS TOLD TO CALL [facility]. CALLED [facility] AND WAS TOLD THAT WE WOULD GET HER ONE.
[2021-02-12 17:28] VITALS: BP 119/84
--- NOTE | 2021-02-12 19:00 | NUR ---
Was asked by nursing staff to see pt. Entered room and adress myself and asked what I can her her with. Pt states she is not getting her medication, and states she asked to see her MAR from the red book. Attempted to review her medications from the computer, stated we do not have a red book. Pt states she is tired of "you people" and asked to speak with the linux vmware administrator. Stated to pt that I am the warehouse shift supervisor. Pt began to yell stating to get out of her room and do not come back. Verbalized to pt if there was anything I can help her with to please call or have her nurse call.
--- NOTE | 2021-02-12 19:15 | NUR ---
PT ASKING FOR MEDS, ASK WHICH ONES, SHE STATES ALL OF THEM, EXPLAIN THAT SHE HAD PAIN MEDS AT 1408, I COULD GIVE AT 2007, THEN SHE SAID SHE HAS TO HAVE MOTRIN, I SAID I WILL LOOK, I WENT BACK AND OFFERED TYLENOL,SHE SAID NO, I CALL HER MISS ISIDRO, SHE SAID NO IM MISS HOPPER, SHE ASK TO SEE MED LIST, I PRINTED E MAR, SHE SAID NO I WANT TO SEE RED CHART, I EXPLAINED WE DONT HAVE A RED CHART, I ASK NEWSPAPER INSERTER TO TALK WITH HER, SHE FIRED HOUSE SUPERVISIOR ALSO.
--- NOTE | 2021-02-12 19:40 | NUR ---
RECEIVED CALL FROM [employer], ASKING ABOUT CALL THEY RECEIVED FROM PT, PT "STATES SHE HAS A FELICIA DOWN HERE BACK, AND IS BEING ELECTRIC SHOCKED, AND WHERE SHE IS AT WONT DO ANYTHING ABOUT IT,
--- NOTE | 2021-02-12 20:10 | NUR ---
GAVE PM MEDS, CAMPUS WELLNESS COORDINATOR WAS STANDING AT THE DOOR,
--- NOTE | 2021-02-12 20:30 | NUR ---
REFUSES TO LET ME DO AN ASSESSMENT
--- NOTE | 2021-02-12 22:53 | NUR ---
ANSWERED CALL LIGHT, "STATES HER BAG IS FULL" I EMPTY 1000 OUT OF [place], ASK IF THERE WAS ANYTHING ELSE I COULD HELP WITH, SHE ASK WHEN SHE COULD HAVE PAIN MEDS, EXPLAIN SHE HAD THEM AT 2004, AND THEY WERE Q6,
--- NOTE | 2021-02-13 01:40 | NUR ---
ASKING FOR PAIN MEDS, WILL GIVEN WHEN ITS TIME
--- NOTE | 2021-02-13 02:01 | NUR ---
GAVE PT PAIN MEDS, LEILA BANKS WITNESS MEDS GIVEN
[2021-02-13 04:36] LABS: BASOPHILS 0.5 % (0-2); HEMATOCRIT 36.9 % (36.0-48.0); HEMOGLOBIN 11.8 g/dL (12-16); IMMATURE GRANULOCYTES 0.2 % (0-5); LYMPHOCYTE ABS# 3.03 10x3/uL (1.18-3.74); LYMPHOCYTES 34.4 % (15-50); MCH 29.4 pg (26.0-34.0); MEAN PLATELET VOLUME 9.9 fL (7.4-10.4); MONOCYTES 6.5 % (2-11); NEUTROPHILS 53.4 % (40-80); PLATELET COUNT 275 10x3/uL (130-400); RBC 4.01 10x6/uL (4.00-5.40); RDW 12.9 % (11.5-14.5); WBC 8.8 10x3/uL (4.8-10.8)
[2021-02-13 04:40] LABS: CALCIUM 8.6 mg/dL (8.5-10.1); CARBON DIOXIDE 30.5 mmol/L (21.0-32.0); CHLORIDE - SERUM 105 mmol/L (98-107); CREATININE - SERUM 0.7 mg/dL (0.6-1.3); GLUCOSE 94 mg/dL (74-106); SODIUM 139 mmol/L (136-145); eGFR NON AFRICAN AMERICAN > 90 mL/min (90-120)
[2021-02-13 04:44] LABS: CALC OSMOLALITY 277 mosm/kg (275-300); POTASSIUM - SERUM 4.2 mmol/L (3.5-5.1); UREA NITROGEN 12 mg/dL (7-18)
--- NOTE | 2021-02-13 05:21 | NUR ---
ASKING FOR PAIN MEDS, NOT DUE UNTIL 0800
[2021-02-13 08:48] VITALS: BP 106/63
[2021-02-13 12:17] VITALS: BP 102/60
--- NOTE | 2021-02-13 14:53 | NUR ---
PAIN MEDICATIONS AND 2ND ROCEPHIN IM INJECTION GIVEN. VERIFIED ADDRESS ON FILE, PATIENT STATES IT IS CORRECT. SPOKE WITH DR. LIAO FOR DISCHARGE ORDER. WILL ASK PATIENT TO LET ME REMOVE LEFT AC IV.
--- NOTE | 2021-02-13 15:16 | MORECARE ---
CASE MANAGEMENT DISCHARGE SUMMARY PATIENT: MAINE FELIX UNIT: [id number] ADM DATE: 02/07/21 AGE: 40 : 78 SEX: F ROOM/BED: D.0324 AUTHOR: ZULEMA,DOC PHYSICIAN: REFERRING PHYSICIAN: YOLY LIAO MD DATE OF SERVICE: 02/13/21 Case Management Discharge Planning Summary CT Patient Name: MAINE FELIX Attending MD : YOLY ALEXIS Medical Record: [id number] Encounter : [id number] Facility : [address] [place] [address] Admission Date : 118:37 Center Discharge Date : [address] [place] [address] Date of : DC Plan ID : [id number] Age/Sex/Martia : 40/ F/S Printed on : 02/13/21 15:15 CT DCP Review Details Anticipated D/C: Expected LOS : Case Status : INITIATED - Initial Reviewe: [id number] - Kirsten Harris Initial Review: 02/07/2021 Planned Disposi: - Final Discharge: - Final Reviewer : : Final Review : Comments CT Entered Date Type Reviewer 02/13/21 14:45 CT Discharge Planning Shirin Avelar Comment CM spoke with Kesha, front of house manager, about physician coverage for this patient. Kesha states that she had informed Yris this morning to get a discharge order from Dr. Singh and transport back to the last address on file ([address] [place] [address] [address], [facility]) unless patient can provide a different address. CM informed Graciela, patient's nurse and she is going to give patient's last dose of Rocephin and verify her address. CM will continue to follow and assist with discharge planning/needs. 02/11/21 18:36 CT Discharge Planning Kirsten Harris Comment LATE ENTRY 02/09/21 CM spoke with patient at [facility]. Patient was very reluctant to give any information to CM. She would not give any contact information for emergency contact. She stated that she lives with someone or some people but wouldn't state whom or if she had 24 hr care. She stated that she was suppose to have [facility] but they couldn't find where she lives. She states that her home health was through [facility] on Aging (? [facility]?) She states that she was in the [facility] within the last 3 weeks for the same issue. Patient did state that the last facility that she was at was in [place], [place]. She states that she has been in a facility in [facility] before. Patient wants CM to get the spinal cord commission to get her some new equipment. Including boots, electric wheelchair and other equipment. CM called and left a message at [facility] cord [facility] [phone] per patients request. Patient would not give CM and answer on what her discharge plan is. Whether she plans to return to her home or if she wants placement when discharged. CM will continue to follow and assist as needed with discharge planning / needs. 02/10/21 16:25 CT Discharge Planning Shirin Avelar Comment CM spoke with Van, he states that patient was given a power chair 2 years ago, but he will follow up with her about it. Van from [facility] number is [phone]. DCP Focus Questions & Answers DCP Screen High Risk Factors: Poor social support DCP Evaluation Patient's ability to cope with chronic illness c. Inadequate (3+ ED visits in 6 mos., readmits within 30 days, 2+ hospital admissions in 1 yr.) Patient's current cognitive status: *Oriented to person, place, situation, time and present Patient gives permission to discuss discharge refused to give contact information plans with: (name, relationship and number) Functional screen assessment: Unable to manage ADLs without immediate ongoing assistance Physical Status: Mobility impaired Physical Status: Indwelling urinary catheter Physical Status: Compromised skin integrity Partial Dependence, assistance required for: Ambulation / Mobility Results of this evaluation have been discussed Patient with: Patient with capacity for self-care or can be No cared for in same environment as prior to hospitalization? Living arrangements comments: states lives with family / friends Baseline cognitive status: *Oriented to person, place, situation, time and present Physical environment modification needed / Yes anticipated for discharge: Preadmission facility can/cannot provide post Can - at higher level of care than hospital level of care needs: preadmission Medication Management: Patient states can read and understand medication labels [facility] name([facility]): [facility] Would patient like to participate in any Care Not applicable Coordination programs (if applicable): Other Equipment comments: POWER W/C, 2 MANUAL W/C Equipment agency name and contact information: [facility]? Mental health screen: No mental health history Resources / Services in place: Wound Care Resources / Services in place: Home health Resources / Services in place: Area agency on aging Problems identified by the patient regarding SPINAL CORD COMISSION - FOR NEW EQUIPMENT discharge: DCP Re-evaluation Would patient like to participate in any Care Not applicable Coordination programs (if applicable): [facility] MAINE FELIX MR#: [id number] /Age/Sex/Bdnxme79-Ayc-53 /40/F /S Attending Physician Name: KESHAWN [id number] Patient Account:[id number] [facility] Page -1 of 1 All edits/amendments must be made on the electronic document DICTATION DATE: 02/13/211514 FIXTURE FABRICATOR REPAIRER: TREVON 02/13/211514 RPT#: [id number] DC DATE: STATUS: ADM IN [facility] [address] [place] [address] END OF REPORT
--- NOTE | 2021-02-13 16:25 | NUR ---
PATIENT REFUSES TO LET ME TAKE INFILTRATED IV OUT. DR. LIAO IS DISCHARGING HER TODAY. TOLD HER THAT SHE WAS BEING DISCHARGED AND SHE STATED THATS NOT WHAT THE DOCTOR TOLD HER. ASKED HER WHAT DOCTOR SAID THAT AND SHE STATED ONE THAT HASNT BEEN HERE TODAY. I TOLD HER THAT SHE FIRED DR. HANKINS YESTERDAY AND SHE DOES NOT HAVE A DR. CURRENTLY. REFUSED TO LET ME REMOVE THE IV. STATES NO WHEN ASKED. CALLED OCEAN FREIGHT FORWARDER AND SHE SAID TO TAKE DARREN MCCLAIN IN WITH ME TO HOLD HER ARM DOWN AND TAKE THE IV OUT. PERSONALLY I DO NOT FEEL COMFORTABLE WITH THAT.
--- NOTE | 2021-02-13 16:33 | NUR ---
CALLED PRESS LOADER [facility] ABOUT IV. STATED SHE DOES NOT WANT HER NURSES GETTING INTO ANY TROUBLE FOR HOLDING PATIENT ARM DOWN WHILE TAKING IV OUT. [facility]IVERS[facility] DEAN STATED THAT SHE WOULD BE THE ONE TO COME UP AND TAKE THE IV OUT.
--- NOTE | 2021-02-13 17:04 | NUR ---
IV OUT PER AUTOMOBILE BUMPER STRAIGHTENER.
[2021-02-13] MEDS ORDERED: OMNICEF300 MG PO (17:05)
--- NOTE | 2021-02-13 17:45 | MORECARE ---
CASE MANAGEMENT DISCHARGE SUMMARY PATIENT: MAINE FELIX UNIT: [id number] ADM DATE: 02/07/21 AGE: 40 : 78 SEX: F ROOM/BED: D.6044 AUTHOR: ZULEMA,DOC PHYSICIAN: REFERRING PHYSICIAN: YOLY LIAO MD DATE OF SERVICE: 02/13/21 Case Management Discharge Planning Summary CT Patient Name: MAINE FELIX Attending MD : YOLY ALEXIS Medical Record: [id number] Encounter : [id number] Facility : [address] [place] [address] Admission Date : 118:37 Center Discharge Date : [address] [place] [address] Date of : DC Plan ID : [id number] Age/Sex/Martia : 40/ F/S Printed on : 02/13/21 17:43 CT DCP Review Details Anticipated D/C: Expected LOS : Case Status : INITIATED - Initial Reviewe: [id number] - Kirsten Harris Initial Review: 02/07/2021 Planned Disposi: - Final Discharge: - Final Reviewer : : Final Review : Comments CT Entered Date Type Reviewer 02/13/21 16:55 CT Discharge Planning Shirin Avelar Comment Myself and Kinga Mendiola CM went into patient's room to give her an IMM, I explained to her it was an important message from Medicare about her rights, she refuses the IMM and refuses to sign. I offered to give her the spinal cord commission number and the person I spoke with and she also refuses that. Home today via ambulance. 02/13/21 14:45 CT Discharge Planning Shirin Avelar Comment CM spoke with Kesha, melt house drag operator, about physician coverage for this patient. Kesha states that she had informed Yris this morning to get a discharge order from Dr. Singh and transport back to the last address on file ([address], [facility]) unless patient can provide a different address. CM informed Graciela, patient's nurse and she is going to give patient's last dose of Rocephin and verify her address. CM will continue to follow and assist with discharge planning/needs. 02/11/21 18:36 CT Discharge Planning Kirsten Harris Comment LATE ENTRY 02/09/21 CM spoke with patient at beside. Patient was very reluctant to give any information to CM. She would not give any contact information for emergency contact. She stated that she lives with someone or some people but wouldn't state whom or if she had 24 hr care. She stated that she was suppose to have [facility] but they couldn't find where she lives. She states that her home health was through [facility] on Aging (? [facility] She states that she was in the [facility] within the last 3 weeks for the same issue. Patient did state that the last facility that she was at was in [place], [place]. She states that she has been in a facility in [facility] before. Patient wants CM to get the spinal cord commission to get her some new equipment. Including boots, electric wheelchair and other equipment. CM called and left a message at [facility] cord Commission [phone] per patients request. Patient would not give CM and answer on what her discharge plan is. Whether she plans to return to her home or if she wants placement when discharged. CM will continue to follow and assist as needed with discharge planning / needs. 02/10/21 16:25 CT Discharge Planning Shirin Valentino Comment CM spoke with Van, he states that patient was given a power chair 2 years ago, but he will follow up with her about it. Van from spinal cord commissions number is [phone]. DCP Focus Questions & Answers DCP Screen High Risk Factors: Poor social support DCP Evaluation Patient's ability to cope with chronic illness c. Inadequate (3+ ED visits in 6 mos., readmits within 30 days, 2+ hospital admissions in 1 yr.) Patient's current cognitive status: *Oriented to person, place, situation, time and present Patient gives permission to discuss discharge refused to give contact information plans with: (name, relationship and number) Functional screen assessment: Unable to manage ADLs without immediate ongoing assistance Physical Status: Mobility impaired Physical Status: Indwelling urinary catheter Physical Status: Compromised skin integrity Partial Dependence, assistance required for: Ambulation / Mobility Results of this evaluation have been discussed Patient with: Patient with capacity for self-care or can be No cared for in same environment as prior to hospitalization? Living arrangements comments: states lives with family / friends Baseline cognitive status: *Oriented to person, place, situation, time and present Physical environment modification needed / Yes anticipated for discharge: Preadmission facility can/cannot provide post Can - at higher level of care than hospital level of care needs: preadmission Medication Management: Patient states can read and understand medication labels Pharmacy name(s): [facility] Would patient like to participate in any Care Not applicable Coordination programs (if applicable): Other Equipment comments: POWER W/C, 2 MANUAL W/C Equipment agency name and contact information: [facility]? Mental health screen: No mental health history Resources / Services in place: Wound Care Resources / Services in place: Home health Resources / Services in place: Area agency on [employer] Problems identified by the patient regarding SPINAL CORD COMISSION - FOR NEW EQUIPMENT discharge: DCP Re-evaluation Would patient like to participate in any Care Not applicable Coordination programs (if applicable): [facility] MAINE FELIX MR#: [id number] /Age/Sex/Laortv88-Vix-24 //F /S Attending Physician Name: KESHAWN [id number] Patient Account:[id number] [facility] Page -1 of 1 All edits/amendments must be made on the electronic document DICTATION DATE: 02/13/211742 CHECK AIRMAN: TREVON 02/13/211742 RPT#: [id number] DC DATE: STATUS: ADM IN [facility] [address] [place] [address] END OF REPORT
--- NOTE | 2021-02-13 17:50 | NUR ---
SANAM MCCRAY AND SANAM KABA ANSWER PATIENT CALL LIGHT. PATIENT STATES SHE PUT HERSELF ON BEDPAN SINCE NO ONE ELSE WANTED TO AND THAT SHE HAS A RASH THAT NO ONE HAS TENDED TO. PATIENT HAS NOT STATED SHE NEEDED TO HAVE A BOWEL MOVEMENT AND PATIENT HAS BEEN REFUSING CARE. PREVIOUSLY REFUSED TO BE CLEANED UP WHEN OFFERED CARE. WILL GO SEE IF SHE WILL LET ME DO A SKIN CHECK.
--- NOTE | 2021-02-13 18:30 | NUR ---
PATIENT HAS RED RASH IN BETWEEN THIGHS. STATES IT SHOWED UP YESTERDAY. NOTHING WAS MENTIONED ABOUT IT TO ME. PATIENT WAS REFUSING CARE YESTERDAY. FULL BED BATH GIVEN TODAY AND MEPILEX REAPPLIED ON SMALL COCCYX WOUND. CREAM APPLIED TO RED SPOT ON THIGHS. AMBULANCE CALLED WAITING ON ARRIVAL.
--- NOTE | 2021-02-13 19:12 | NUR ---
ATTEMPTED TO CALL [facility] IN [place], [place] WHERE PATIENT WOULD LIKE HER MEDICATION SENT. PHARMACY CLOSED AT THIS TIME.
--- NOTE | 2021-02-13 19:20 | NUR ---
WANTS TO KNOW IF SHE IS BEING SENT HOME, WITH PAIN MEDS, EXPLAIN SHE WILL HAVE TO FOLLOW UP WITH HER
--- NOTE | 2021-02-13 21:00 | NUR ---
WAS UNABLE TO LEAVE VIA [facility], COULDN'T PROVIDE ADDRESS, PROVIDE PM MEDS, STILL REFUSING COLACE, I ASK IF SHE HAD TAKEN ANY OF HER OWN MEDS, SHE STATED" NO BUT CAN I TAKE MY MUSCLE RELAXER, I TOLD HER NO, IT WAS NOT ON HER ORDERS, I ASK IF I COULD DO ANYTHING ELSE, SHE ASK FOR PAULO, I PROVIDED, BED IS LOW, SRX2, CALL LIGHT IN REACH, WILL CONTINUE PLAN OF CARE
--- NOTE | 2021-02-13 21:02 | NUR ---
At bedside with [employer] and their processing supervisor. Pt has given several different addresses and they are not able to verify address for transport. Called [facility] and spoke to Don who verified address of [address] Provided number of [phone] of a significant number- unknown name. Called but unable to reach or leave a message- voice mailbox not set up. Called APS at [phone] to initiat case.
[2021-02-13 21:44] VITALS: BP 137/77
[2021-02-14 01:07] VITALS: BP 93/56
--- NOTE | 2021-02-14 02:10 | NUR ---
I have reviewed this patient and I concur with the Shift Assessment completed by the Licensed Practical Nurse today this shift.
[2021-02-14 06:01] VITALS: BP 82/46
--- NOTE | 2021-02-14 07:22 | NUR ---
INITIAL ROUNDS- LETHARGIC BUT WILL AROUSE TO VOICE, UNABLE TO CARRY A CONVERSATION. RESP EVEN AND NONLABORED ON RA. NO IV ACCESS NOTED. [place] DRAINING TO GRAVITY. PT DENIES ANY NEEDS AT THIS TIME. CALL LIGHT IN REACH, WILL CONTINUE PLAN OF CARE.
[2021-02-14 09:52] VITALS: BP 104/61
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
[2021-02-14 11:56] VITALS: BP 122/71
--- NOTE | 2021-02-14 12:30 | NUR ---
AM MEDS GIVEN LATE TO TO PT BEING TOO DROWSY TO MEDICATIONS THIS AM. ALSO GAVE OXYCODONE FOR PAIN LEVEL OF 10/10. WAS GOING TO CHANGE HER DRESSING TO BOTTOM AND PT REFUSED AT THIS TIME. STATED " MAYBE AFTER LUNCH." WILL TRY AGAIN LATER. PT DENIES ANY OTHER NEEDS AT THIS TIME. CALL LIGHT IN REACH.
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
[2021-02-14 16:54] VITALS: BP 88/48
--- NOTE | 2021-02-14 19:30 | NUR ---
RECEIVED REPORT, WILL ASSUME CARE OF PT, ASKING FOR PAIN MEDS, WILL PROVIDE IF BP IS UP, DENIES ANY OTHER NEEDS AT THIS TIME, BED IS LOW, SRX2, CALL LIGHT IN REACH, WILL CONTINUE PLAN OF CARE
[2021-02-14 21:07] VITALS: BP 109/70
--- NOTE | 2021-02-14 21:30 | NUR ---
CHANGE DRESSING, ASSIST HEAT AND FROST INSULATOR WITH LINEN CHANGE
[2021-02-15 06:14] VITALS: BP 100/56
--- NOTE | 2021-02-15 08:33 | NUR ---
AM MEDS GIVEN AT THIS TIME. PT A/O X4, RESP EVEN AND NONLABORED ON RA. NO IV ACCESS, OWENS DRAINING TO GRAVITY. SCDS ON BILAT, HEELS BRIDGED ON PILLOW PT ASKING FOR PAIN MEDICATION, INFORMED PT THAT SHE CANNOT HAVE IT UNTIL AROUND 0950. PT VERBALIZED UNDERSTANDING DENIES ANY OTHER NEEDS AT THIS TIME, CALLL LIGHT IN REACH.
--- NOTE | 2021-02-15 12:00 | NUR ---
PT ASKING FOR A VAPING INHALER, INFORMED PT THAT I DID NOT KNOW WHAT SHE WAS TALKING ABOUT BUT IF SHE WANTED A NICOTINE PATCH THAT I WOULD CALL THE DOCTOR AND GET AN ORDER FOR ONE. PT STATED " WELL IF YOU CAN GET HIM TO ORDER ME A VAPING INHALER, I WOULD PREFER THAT BETTER. CALLED DR. GARZON AND GOT ORDER FOR 21MG NICOTINE PATCH.
--- NOTE | 2021-02-15 15:59 | NUR ---
OXYCODONE GIVEN FOP PAIN LEVEL OF 10/10. PT DENIES ANY OTHER NEEDS AT THIS TIME. CALL LIGHT IN REACH.
[2021-02-15 16:16] VITALS: BP 133/73
--- NOTE | 2021-02-15 16:17 | MORECARE ---
CASE MANAGEMENT DISCHARGE SUMMARY PATIENT: MAINE FELIX UNIT: [id number] ADM DATE: 02/07/21 AGE: 40 : 78 SEX: F ROOM/BED: D.0580 AUTHOR: ZULEMA,DOC PHYSICIAN: REFERRING PHYSICIAN: YOLY LIAO MD DATE OF SERVICE: 02/15/21 Case Management Discharge Planning Summary CT Patient Name: MAINE FELIX Attending MD : YOLY ALEXIS Medical Record: [id number] Encounter : [id number] Facility : [address] [place] [address] Admission Date : 118:37 Center Discharge Date : [address] [place] [address] Date of : DC Plan ID : [id number] Age/Sex/Martia : 40/ F/S Printed on : 02/15/21 16:16 CT DCP Review Details Anticipated D/C: Expected LOS : 0 Case Status : INITIATED - Initial Reviewe: [id number] - Kirsten Harris Initial Review: 02/07/2021 Planned Disposi: 06 - Discharged/Trans to Home Under Care of Organized Home Health Service in Anticipation of Skilled Care Final Discharge: - Final Reviewer : [id number] : Kirsten Harris Final Review : 02/14/[address] Entered Date Type Reviewer 02/15/21 15:30 CT Discharge Planning Shirin Avelar Comment CM spoke with patient regarding Dr. Nance's note about going to [facility] for SN. She said she is in agreement to [facility]. I faxed clinical to [facility] and will f/u with clinical resource coordinator in the morning. I asked if she had another choice and she said no. I left a packet of SNF for her MARIELA. She said that she has been in [place] before, but now wants to stay in [place]. CM will continue to follow and assist with discharge planning/needs. 02/14/21 14:25 CT Discharge Planning Naif Nichols Comment Spoke with patient regarding inability to obtain Home Health due to unsafe activity at her home. CM team asked patient if she would like to visit a care home facility while her wound healed. Patient declined SNF and declined to sign MARIELA form for refusal. CM will continue to follow and will assist as needed with dc plans/needs. 02/14/21 14:24 CT Discharge Planning Naif Nichols Comment 1300 Received phone call from Iesha of [facility]. Iesha stated that the patient was "eval'd" last week and deemed inappropriate for [facility]. Iesha stated that the patient's home is unsafe for home health nurses to visit due to drug activity. CM will notify patient. CM will continue to follow and will assist as needed with dc plans/needs. 02/14/21 10:59 CT Discharge Planning Naif Nichols Comment Met with patient to discuss DC plan and evaluate needs. Patient stated that she feels that she is not ready to DC. CM asked if she would like to appeal her DC and offered to provide information on how to appeal DC. Patient declined appeal information and declined to sign the DC IMM. CM asked the patient to confirm her address. Patient stated that her address is [address] [place] [address] [address], [place] [address]. CM asked about the patient's living conditions. Patient stated that she has a room mate but refused to disclose her room mates name. Patient does not feel unsafe to return home but feels that [facility] has not addressed her medication needs and specialised needs. CM informed patient that treating physicians have discharged her from care at this time. Patient again did not want to appeal DC. CM inquired about home health agencies to help patient with dressing changes. Patient stated that [facility] is working with her at her home but the patient could not provide more information for what they are doing for her. CM informed patient that discharging physician would like for her to have home health for dressing changes. Patient again refused to name an agency but did not refuse home health. Spoke with Iesha of [facility] in [place], [place]. Patient is not current with [facility] but Iesha welcomed a referral. Will send fax to [facility]. CM team was informed that a case has been opened with [facility] for the patient. Spoke with Evans of APS. Evans stated that he has been working with the [facility] department to investigate whether the patient's home is safe to return to. Evans stated that at this time he does not feel that it would be safe to discharge patient until the Director Of Curriculum And Instruction's office can complete an investigation on Tuesday morning. CM team queried whether it would be ok to DC patient if the patient would like to leave after the investigation even if it is determined that the home is without the amenities they are searching for. Evans stated that if the patient would like to leave then she can do so after an investigation of her home has occurred. Patient refused to sign an MARIELA for acceptance or refusal and refused to sign DC IMM. CM will continue to follow and will assist as needed with dc plans/needs. 02/13/21 16:55 CT Discharge Planning Shirin Avelar Comment Myself and Kinga Mendiola, ANDREAS went into patient's room to give her an IMM, I explained to her it was an important message from Medicare about her rights, she refuses the IMM and refuses to sign. I offered to give her the spinal cord commission number and the person I spoke with and she also refuses that. Home today via ambulance. 02/13/21 14:45 CT Discharge Planning Shirin Avelar Comment CM spoke with Kesha, warehouse specialist, about physician coverage for this patient. Kesha states that she had informed Yris this morning to get a discharge order from Dr. Singh and transport back to the last address on file ([address] [place] [address] [address], [facility]) unless patient can provide a different address. CM informed Graciela, patient's nurse and she is going to give patient's last dose of Rocephin and verify her address. CM will continue to follow and assist with discharge planning/needs. 02/11/21 18:36 CT Discharge Planning Kirsten Samuelsr Comment LATE ENTRY 02/09/21 CM spoke with patient at beside. Patient was very reluctant to give any information to CM. She would not give any contact information for emergency contact. She stated that she lives with someone or some people but wouldn't state whom or if she had 24 hr care. She stated that she was suppose to have [facility] but they couldn't find where she lives. She states that her home health was through [facility] ([facility] She states that she was in the [facility] within the last 3 weeks for the same issue. Patient did state that the last facility that she was at was in [place], [place]. She states that she has been in a facility in [facility] before. Patient wants CM to get the spinal cord commission to get her some new equipment. Including boots, electric wheelchair and other equipment. CM called and left a message at [facility] Spinal cord Commission [phone] per patients request. Patient would not give CM and answer on what her discharge plan is. Whether she plans to return to her home or if she wants placement when discharged. CM will continue to follow and assist as needed with discharge planning / needs. 02/10/21 16:25 CT Discharge Planning Shirin Callawaylyssa Comment CM spoke with Van, he states that patient was given a power chair 2 years ago, but he will follow up with her about it. Van from spinal cord commissions number is [phone]. DCP Focus Questions & Answers DCP Screen High Risk Factors: Poor social support DCP Evaluation Patient's ability to cope with chronic illness c. Inadequate (3+ ED visits in 6 mos., readmits within 30 days, 2+ hospital admissions in 1 yr.) Patient's current cognitive status: *Oriented to person, place, situation, time and present Patient gives permission to discuss discharge refused to give contact information plans with: (name, relationship and number) Functional screen assessment: Unable to manage ADLs without immediate ongoing assistance Physical Status: Mobility impaired Physical Status: Indwelling urinary catheter Physical Status: Compromised skin integrity Partial Dependence, assistance required for: Ambulation / Mobility Results of this evaluation have been discussed Patient with: Patient with capacity for self-care or can be No cared for in same environment as prior to hospitalization? Living arrangements comments: states lives with family / friends Baseline cognitive status: *Oriented to person, place, situation, time and present Physical environment modification needed / Yes anticipated for discharge: Preadmission facility can/cannot provide post Can - at higher level of care than hospital level of care needs: preadmission Medication Management: Patient states can read and understand medication labels Pharmacy name(s): [facility] Would patient like to participate in any Care Not applicable Coordination programs (if applicable): Other Equipment comments: POWER W/C, 2 MANUAL W/C Equipment agency name and contact information: [facility]? Mental health screen: No mental health history Resources / Services in place: Wound Care Resources / Services in place: Home health Resources / Services in place: [facility] on aging Problems identified by the patient regarding SPINAL CORD COMISSION - FOR NEW EQUIPMENT discharge: DCP Re-evaluation Would patient like to participate in any Care Not applicable Coordination programs (if applicable): [facility] MAINE FELIX MR#: [id number] /Age/Sex/Gjfcjr81-Puj-12 /40/F /S Attending Physician Name: KESHAWN [id number] Patient Account:[id number] [facility] Page -1 of 1 All edits/amendments must be made on the electronic document DICTATION DATE: 02/15/211615 MECHANICS HANDYMAN: TREVON 02/15/211615 RPT#: [id number] DC DATE: STATUS: ADM IN [facility] [address] [place] [address] END OF REPORT
[2021-02-15 20:00] VITALS: BP 115/71
[2021-02-16] VITALS: BP 135/79
[2021-02-16 04:00] VITALS: BP 89/51
--- NOTE | 2021-02-16 04:08 | NUR ---
I have reviewed this patient and I concur with the Shift Assessment completed by the Licensed Practical Nurse today this shift.
[2021-02-16 07:00] VITALS: BP 118/69
--- NOTE | 2021-02-16 07:47 | NUR ---
AM MEDS GIVEN WITH PRN PAIN MEDICATION PER REQUEST. PT AWAKE AND ALERT, ANSWERS QUESTIONS APPROP. RR EVEN NON LABORED. FRESH WATER GIVEN. NO FURTHER NEEDS VOICED. CLWR.
--- NOTE | 2021-02-16 09:31 | MORECARE ---
CASE MANAGEMENT DISCHARGE SUMMARY PATIENT: MAINE FELIX UNIT: [id number] ADM DATE: 02/07/21 AGE: 40 : 78 SEX: F ROOM/BED: D.9029 AUTHOR: ZULEMA,DOC PHYSICIAN: REFERRING PHYSICIAN: YOLY LIAO MD DATE OF SERVICE: 02/16/21 Case Management Discharge Planning Summary CT Patient Name: MAINE FELIX Attending MD : YOLY ALEXIS Medical Record: [id number] Encounter : [id number] Facility : [address] [place] [address] Admission Date : 118:37 Center Discharge Date : [address] [place] [address] Date of : DC Plan ID : [id number] Age/Sex/Martia : 40/ F/S Printed on : 02/16/21 9:30 CT DCP Review Details Anticipated D/C: Expected LOS : 0 Case Status : INITIATED - Initial Reviewe: [id number] - Kirsten Harris Initial Review: 02/07/2021 Planned Disposi: 06 - Discharged/Trans to Home Under Care of Organized Home Health Service in Anticipation of Skilled Care Final Discharge: - Final Reviewer : [id number] : Kirsten Harris Final Review : 02/14/[address] Entered Date Type Reviewer 02/16/21 9:24 CT Discharge Planning Shirin Avelar Comment ANDREAS called [facility] and spoke with Rosario. Rosario states they received the referral and will look over the paper work and call me back. I also spoke with Van with the spinal cord commission and ask that they contact patient in her room concerning what other needs she may have. Van's number is [phone]. Van states that patient has a motorized wc issued to her in 2019. ANDREAS will continue to follow and assist with discharge planning/needs. 02/15/21 15:30 CT Discharge Planning Shirin Avelar Comment ANDREAS spoke with patient regarding Dr. Nance's note about going to [facility] for SN. She said she is in agreement to [facility]. I faxed clinical to [facility] and will f/u with talent acquisition coordinator in the morning. I asked if she had another choice and she said no. I left a packet of SNF for her MARIELA. She said that she has been in [place] before, but now wants to stay in [place]. CM will continue to follow and assist with discharge planning/needs. 02/14/21 14:25 CT Discharge Planning Naif Nichols Comment Spoke with patient regarding inability to obtain Home Health due to unsafe activity at her home. CM team asked patient if she would like to visit a [place] [facility] [place] facility while her wound healed. Patient declined SNF and declined to sign MARIELA form for refusal. CM will continue to follow and will assist as needed with dc plans/needs. 02/14/21 14:24 CT Discharge Planning Naif Nichols Comment 1300 Received phone call from Iesha of [facility]. Iesha stated that the patient was "eval'd" last week and deemed inappropriate for [facility]. Iesha stated that the patient's home is unsafe for home health nurses to visit due to drug activity. CM will notify patient. CM will continue to follow and will assist as needed with dc plans/needs. 02/14/21 10:59 CT Discharge Planning Naif Nichols Comment Met with patient to discuss DC plan and evaluate needs. Patient stated that she feels that she is not ready to DC. CM asked if she would like to appeal her DC and offered to provide information on how to appeal DC. Patient declined appeal information and declined to sign the DC IMM. CM asked the patient to confirm her address. Patient stated that her address is [address] [place] [address] [address] [place] [address]. CM asked about the patient's living conditions. Patient stated that she has a room mate but refused to disclose her room mates name. Patient does not feel unsafe to return home but feels that [facility] has not addressed her medication needs and specialised needs. CM informed patient that treating physicians have discharged her from care at this time. Patient again did not want to appeal DC. CM inquired about home health agencies to help patient with dressing changes. Patient stated that [facility] is working with her at her home but the patient could not provide more information for what they are doing for her. CM informed patient that discharging physician would like for her to have home health for dressing changes. Patient again refused to name an agency but did not refuse home health. Spoke with Iesha of [facility] in [place], [place]. Patient is not current with [facility] but Iesha welcomed a referral. Will send fax to [facility]. CM team was informed that a case has been opened with APS for the patient. Spoke with Evans of APS. Evans stated that he has been working with the [facility]'s department to investigate whether the patient's home is safe to return to. Evans stated that at this time he does not feel that it would be safe to discharge patient until the Pin Cleaner's office can complete an investigation on Tuesday morning. CM team queried whether it would be ok to DC patient if the patient would like to leave after the investigation even if it is determined that the home is without the amenities they are searching for. Evans stated that if the patient would like to leave then she can do so after an investigation of her home has occurred. Patient refused to sign an MARIELA for acceptance or refusal and refused to sign DC IMM. CM will continue to follow and will assist as needed with dc plans/needs. 02/13/21 16:55 CT Discharge Planning Shirin Avelar Comment Myself and Kinga Mendiola, ANDREAS went into patient's room to give her an IMM, I explained to her it was an important message from Medicare about her rights, she refuses the IMM and refuses to sign. I offered to give her the spinal cord commission number and the person I spoke with and she also refuses that. Home today via ambulance. 02/13/21 14:45 CT Discharge Planning Shirin Avelar Comment CM spoke with Kesha, houseman, about physician coverage for this patient. Kesha states that she had informed Yris this morning to get a discharge order from Dr. Singh and transport back to the last address on file ([address] [place] [address] [address] [facility]) unless patient can provide a different address. CM informed Graciela, patient's nurse and she is going to give patient's last dose of Rocephin and verify her address. CM will continue to follow and assist with discharge planning/needs. 02/11/21 18:36 CT Discharge Planning Kirsten Harris Comment LATE ENTRY 02/09/21 CM spoke with patient at beside. Patient was very reluctant to give any information to CM. She would not give any contact information for emergency contact. She stated that she lives with someone or some people but wouldn't state whom or if she had 24 hr care. She stated that she was suppose to have [facility] but they couldn't find where she lives. She states that her home health was through [facility] (? [facility]?) She states that she was in the [facility] within the last 3 weeks for the same issue. Patient did state that the last facility that she was at was in [place], [place]. She states that she has been in a facility in [facility] before. Patient wants CM to get the spinal cord commission to get her some new equipment. Including boots, electric wheelchair and other equipment. CM called and left a message at [facility] cord [facility] [phone] per patients request. Patient would not give CM and answer on what her discharge plan is. Whether she plans to return to her home or if she wants placement when discharged. CM will continue to follow and assist as needed with discharge planning / needs. 02/10/21 16:25 CT Discharge Planning Shirin Avelar Comment CM spoke with Van, he states that patient was given a power chair 2 years ago, but he will follow up with her about it. Van from spinal cord commissions number is [phone]. DCP Focus Questions & Answers DCP Screen High Risk Factors: Poor social support DCP Evaluation Patient's ability to cope with chronic illness c. Inadequate (3+ ED visits in 6 mos., readmits within 30 days, 2+ hospital admissions in 1 yr.) Patient's current cognitive status: *Oriented to person, place, situation, time and present Patient gives permission to discuss discharge refused to give contact information plans with: (name, relationship and number) Functional screen assessment: Unable to manage ADLs without immediate ongoing assistance Physical Status: Mobility impaired Physical Status: Indwelling urinary catheter Physical Status: Compromised skin integrity Partial Dependence, assistance required for: Ambulation / Mobility Results of this evaluation have been discussed Patient with: Patient with capacity for self-care or can be No cared for in same environment as prior to hospitalization? Living arrangements comments: states lives with family / friends Baseline cognitive status: *Oriented to person, place, situation, time and present Physical environment modification needed / Yes anticipated for discharge: Preadmission facility can/cannot provide post Can - at higher level of care than hospital level of care needs: preadmission Medication Management: Patient states can read and understand medication labels Pharmacy name(s): [facility] Would patient like to participate in any Care Not applicable Coordination programs (if applicable): Other Equipment comments: POWER W/C, 2 MANUAL W/C Equipment agency name and contact information: [facility]? Mental health screen: No mental health history Resources / Services in place: Wound Care Resources / Services in place: Home health Resources / Services in place: Area agency on aging Problems identified by the patient regarding SPINAL CORD COMISSION - FOR NEW EQUIPMENT discharge: DCP Re-evaluation Would patient like to participate in any Care Not applicable Coordination programs (if applicable): [facility] MAINE FELIX MR#: [id number] /Age/Sex/[id number]-30 //F /S Attending Physician Name: KESHAWN [id number] Patient Account:[id number] [facility] Page -1 of 1 All edits/amendments must be made on the electronic document DICTATION DATE: 02/16/21929 FLOORS BUFFER: TREVON 02/16/21929 RPT#: [id number] DC DATE: STATUS: ADM IN [facility] [address] [place] [address] END OF REPORT
[2021-02-16 11:00] VITALS: BP 120/71
--- NOTE | 2021-02-16 13:38 | NUR ---
PT GIVEN PRN PAIN MEDICATION D/T BACK PAIN. PT DENIES WANTING REPOSITIONED AT THIS TIME. RR EVEN NON LABORED. NO FURTHER NEEDS VOICED. CLWR.
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
--- NOTE | 2021-02-16 14:35 | NUR ---
REHAB PRESCREENING Rehab referral recieved and chart reviewed. Rehab will await PT and OT consults in order to assess admission criteria. Thank you for this referral! Lor Aceves, FIRST RESPONDER Rehab PD
--- NOTE | 2021-02-16 14:45 | NUR ---
PRESENT IN ROOM WITH STEAM HEATING INSTALLER AND [employer]ANKS. PT STATES SHE DID WANT TO GIVE INFORMATION TO THE STEAM HEATING INSTALLER AND REFUSED TO DISCUSS CARE PLAN OR HOUSING SITUATION WITH HER. PT CALM. PT SPOKE WITH NURSE AND NEW BANKS REGARDING BEING D/C TO REHAB WHEN STEAM HEATING INSTALLER EXITED THE ROOM. NO FURTHER NEEDS VOICED BY PT. CLWR.
--- NOTE | 2021-02-16 14:46 | MORECARE ---
CASE MANAGEMENT DISCHARGE SUMMARY PATIENT: MAINE FELIX UNIT: [id number] ADM DATE: 02/07/21 AGE: 40 : 78 SEX: F ROOM/BED: D.2124 AUTHOR: ZULEMA,DOC PHYSICIAN: REFERRING PHYSICIAN: YOLY LIAO MD DATE OF SERVICE: 02/16/21 Case Management Discharge Planning Summary CT Patient Name: MAINE FELIX Attending MD : YOLY ALEXIS Medical Record: [id number] Encounter : [id number] Facility : [address] [place] [address] Admission Date : 118:37 Center Discharge Date : [address] [place] [address] Date of : DC Plan ID : [id number] Age/Sex/Martia : 40/ F/S Printed on : 02/16/21 14:45 CT DCP Review Details Anticipated D/C: Expected LOS : 0 Case Status : INITIATED - Initial Reviewe: [id number] - Kirsten Harris Initial Review: 02/07/2021 Planned Disposi: 06 - Discharged/Trans to Home Under Care of [facility]ized Home [facility] Service in Anticipation of Skilled Care Final Discharge: - Final Reviewer : [id number] : Kirsten Harris Final Review : 02/14/[address] Entered Date Type Reviewer 02/16/21 14:34 CT Discharge Planning Shirin Avelar Comment Asiya Alejandro is here from [facility] and visited with patient. Asiya states she will f/u with me. Referral to inpatient rehab at [facility] pending at this time. 02/16/21 13:15 CT Discharge Planning Shirin Avelar Comment Received a call from Rosario with [facility] that they are declining admission to [facility]. I spoke with the patient and she states she wants to go somewhere that can help her with PT/OT to become more independent. She consents to inpatient rehab at [facility]. States her goal is to live on her own again. Patient is very cooperative and thankful for help. I called [facility] and Katheryn called back, states "we've had a case with her before, but she is alert and oriented and able to make her own decision, so if she wants to return home she can return home no matter what the conditions are". Katheryn states they will come see her. I called Melvin with PT to re evaluate for inpatient rehab as well as OT per patient request. CM will continue to follow and assist with discharge planning/needs. 02/16/21 9:24 CT Discharge Planning Shirin Avelar Comment CM called [facility] and spoke with Rosario. Rosario states they received the referral and will look over the paper work and call me back. I also spoke with Van with the spinal cord commission and ask that they contact patient in her room concerning what other needs she may have. Van's number is [phone]. Van states that patient has a motorized wc issued to her in 2019. CM will continue to follow and assist with discharge planning/needs. 02/15/21 15:30 CT Discharge Planning Shirin Avelar Comment CM spoke with patient regarding Dr. Nance's note about going to [facility] for SN. She said she is in agreement to [facility]. I faxed clinical to [facility] and will f/u with host coordinator in the morning. I asked if she had another choice and she said no. I left a packet of SNF for her MARIELA. She said that she has been in [place] before, but now wants to stay in [place]. CM will continue to follow and assist with discharge planning/needs. 02/14/21 14:25 CT Discharge Planning Naif Nichols Comment Spoke with patient regarding inability to obtain Home Health due to unsafe activity at her home. CM team asked patient if she would like to visit a long term facility while her wound healed. Patient declined SNF and declined to sign MARIELA form for refusal. CM will continue to follow and will assist as needed with dc plans/needs. 02/14/21 14:24 CT Discharge Planning Naif Nichols Comment 1300 Received phone call from Iesha of [facility]. Iesha stated that the patient was "eval'd" last week and deemed inappropriate for [facility]. Iesha stated that the patient's home is unsafe for home health nurses to visit due to drug activity. CM will notify patient. CM will continue to follow and will assist as needed with dc plans/needs. 02/14/21 10:59 CT Discharge Planning Naif Nichols Comment Met with patient to discuss DC plan and evaluate needs. Patient stated that she feels that she is not ready to DC. CM asked if she would like to appeal her DC and offered to provide information on how to appeal DC. Patient declined appeal information and declined to sign the DC IMM. CM asked the patient to confirm her address. Patient stated that her address is [address], [place] [address]. CM asked about the patient's living conditions. Patient stated that she has a room mate but refused to disclose her room mates name. Patient does not feel unsafe to return home but feels that [facility] has not addressed her medication needs and specialised needs. CM informed patient that treating physicians have discharged her from care at this time. Patient again did not want to appeal DC. CM inquired about home health agencies to help patient with dressing changes. Patient stated that [facility] is working with her at her home but the patient could not provide more information for what they are doing for her. CM informed patient that discharging physician would like for her to have home health for dressing changes. Patient again refused to name an agency but did not refuse home health. Spoke with Iesha of [facility] in [place], [place]. Patient is not current with [facility] but Iesha welcomed a referral. Will send fax to [facility] [place]. CM team was informed that a case has been opened with [facility] for the patient. Spoke with Evans of [facility]. Evans stated that he has been working with the [facility]'s department to investigate whether the patient's home is safe to return to. Evans stated that at this time he does not feel that it would be safe to discharge patient until the Automatic Spool[employer]'s office can complete an investigation on Tuesday morning. CM team queried whether it would be ok to DC patient if the patient would like to leave after the investigation even if it is determined that the home is without the amenities they are searching for. Evans stated that if the patient would like to leave then she can do so after an investigation of her home has occurred. Patient refused to sign an MARIELA for acceptance or refusal and refused to sign DC IMM. CM will continue to follow and will assist as needed with dc plans/needs. 02/13/21 16:55 CT Discharge Planning Shirin Avelar Comment Myself and Kinga Mendiola, CM went into patient's room to give her an IMM, I explained to her it was an important message from Medicare about her rights, she refuses the IMM and refuses to sign. I offered to give her the spinal cord commission number and the person I spoke with and she also refuses that. Home today via ambulance. 02/13/21 14:45 CT Discharge Planning Shirin Avelar Comment ANDREAS spoke with Kesha, warehouse supervisor 3rd shift, about physician coverage for this patient. Kesha states that she had informed Yris this morning to get a discharge order from Dr. Singh and transport back to the last address on file ([address], [facility]) unless patient can provide a different address. CM informed Graciela, patient's nurse and she is going to give patient's last dose of Rocephin and verify her address. CM will continue to follow and assist with discharge planning/needs. 02/11/21 18:36 CT Discharge Planning Kirsten Samuelsr Comment LATE ENTRY 02/09/21 CM spoke with patient at beside. Patient was very reluctant to give any information to CM. She would not give any contact information for emergency contact. She stated that she lives with someone or some people but wouldn't state whom or if she had 24 hr care. She stated that she was suppose to have [facility] but they couldn't find where she lives. She states that her home health [facility] ([facility] She states that she was in the [facility] within the last 3 weeks for the same issue. Patient did state that the last facility that she was at was in [place], [place]. She states that she has been in a facility in [facility] before. Patient wants CM to get the spinal cord commission to get her some new equipment. Including boots, electric wheelchair and other equipment. CM called and left a message at [facility] [phone] per patients request. Patient would not give CM and answer on what her discharge plan is. Whether she plans to return to her home or if she wants placement when discharged. CM will continue to follow and assist as needed with discharge planning / needs. 02/10/21 16:25 CT Discharge Planning Shirin Avelar Comment CM spoke with Van, he states that patient was given a power chair 2 years ago, but he will follow up with her about it. Van from spinal cord commissions number is [phone]. DCP Focus Questions & Answers DCP Screen High Risk Factors: Poor social support DCP Evaluation Patient's ability to cope with chronic illness c. Inadequate (3+ ED visits in 6 mos., readmits within 30 days, 2+ hospital admissions in 1 yr.) Patient's current cognitive status: *Oriented to person, place, situation, time and present Patient gives permission to discuss discharge refused to give contact information plans with: (name, relationship and number) Functional screen assessment: Unable to manage ADLs without immediate ongoing assistance Physical Status: Mobility impaired Physical Status: Indwelling urinary catheter Physical Status: Compromised skin integrity Partial Dependence, assistance required for: Ambulation / Mobility Results of this evaluation have been discussed Patient with: Patient with capacity for self-care or can be No cared for in same environment as prior to hospitalization? Living arrangements comments: states lives with family / friends Baseline cognitive status: *Oriented to person, place, situation, time and present Physical environment modification needed / Yes anticipated for discharge: Preadmission facility can/cannot provide post Can - at higher level of care than hospital level of care needs: preadmission Medication Management: Patient states can read and understand medication labels Pharmacy name(s): [facility] Would patient like to participate in any Care Not applicable Coordination programs (if applicable): Other Equipment comments: POWER W/C, 2 MANUAL W/C Equipment agency name and contact information: [facility]? Mental health screen: No mental health history Resources / Services in place: Wound Care Resources / Services in place: Home health Resources / Services in place: Area agency on [employer] Problems identified by the patient regarding [facility] - FOR NEW EQUIPMENT discharge: DCP Re-evaluation Would patient like to participate in any Care Not applicable Coordination programs (if applicable): [facility] MAINE FELIX MR#: [id number] /Age/Sex/[id number]-Cxd-37 /40/F /S Attending Physician Name: KESHAWN [id number] Patient Account:[id number] [facility] Page -1 of 1 All edits/amendments must be made on the electronic document DICTATION DATE: 02/16/211444 PIGSKIN TRIMMER: TREVON 02/16/211444 RPT#: [id number] DC DATE: STATUS: ADM IN [facility] [address] [place] [address] END OF REPORT
[2021-02-16 15:00] VITALS: BP 130/67
[2021-02-16 20:00] VITALS: BP 140/76
--- NOTE | 2021-02-16 20:06 | NUR ---
PT ASKING SIGN PAINTER FOR " ALL OF HER MEDS" THIS NURSE ASKED PT WHAT MEDS SHE IS WANTING, PT STATED THAT SHE IS READY FOR ALL OF HER NIGHT TIME MEDS AND ALL OF HER PRN MEDS. GAVE PT HER OXYCODONE AND INFORMED HER THAT THIS IS ALL THAT I HAD PULLED AT THIS TIME AND WILL BE BACK SHORTLY WITH THE REST OF HER MEDICATIONS. PT STATED UNDERSTANDING.
--- NOTE | 2021-02-16 20:48 | NUR ---
HS MEDS GIVEN WITH FRESH ICE WATER. RESTORIL GIVEN TO ASSIST WITH SLEEP. NO OTHER NEEDS VOICED AT THIS TIME, BED LOW, CL IN REACH.
--- NOTE | 2021-02-16 23:40 | NUR ---
CARIN GUTIERRES, PT ASKING FOR PAIN MEDICATION AND ATIVAN. INFORMED PT THAT HER PAIN MEDICATION IS EVERY 6 HOURS NEEED AND ITS 2 HOURS TO EARLY AND THAT SHE DOESNT HAVE ATIVAN ORDERED. PT STATED "THATS IT, NO MORE PRN MEDS?" INFORMED PT THAT SHE HAS TYLENOL ORDERED, PT STATED THAT SHE WILL TAKE THE TYLENOL.
--- NOTE | 2021-02-17 01:03 | NUR ---
I have reviewed this patient and I concur with the Shift Assessment completed by the Licensed Practical Nurse today this shift.
[2021-02-17 04:00] VITALS: BP 108/68
--- NOTE | 2021-02-17 04:31 | NUR ---
CL ANSWERED, PT ASKING FOR PAIN MEDICINE, INFORMED PT THAT SHE HAD HER TALIA MEDICATION AT 0200 AND ITS NOT DUE AGAIN UNTIL 0800.
[2021-02-17 07:00] VITALS: BP 136/73
--- NOTE | 2021-02-17 08:02 | NUR ---
PT SITTING UP IN BED, RR EVEN NON LABORED ON ROOM AIR. AM MEDS GIVEN INCLUDING PRN PAIN MEDICATION D/T C/O BACK PAIN. PT AWAKE AND ALERT, NO FURTHER NEEDS VOICED. WATER AT BEDSIDE. CLWR.
--- NOTE | 2021-02-17 10:54 | NUR ---
OT NOTE: DO NOT RECOMMEND IP REHAB SERVICES. PT IS AT PRIOR FUNCTIONAL LEVEL. RECOMMEND LTC PT DOES NOT WANT TO RETURN TO PRIOR LIVING SITUATION. IF PT WERE TO RECEIVE IP REHAB, SHE WOULD STILL REQUIRE ASSISTANCE WITH PLACEMENT. DONT FEEL IP REHAB WOULD BE BENEFICIAL DUE TO INJURY TYPE AND CURRENT LEVEL OF FUNCTION, PT REPORTS THAT HER WCS AT HOME "ARE TRASH"..SPOKE WITH CM REGARDING CONTACT OF [facility]. UNSURE IF THEY WILL PROVIDE NEW CHAIR DUE TO PT RECENTLY RECEIVING WC IN 2019 TYRELL ERVIN, OTR/L
[2021-02-17 12:00] VITALS: BP 120/73
--- NOTE | 2021-02-17 12:46 | NUR ---
Nutrition Reassessment/Follow-up: Pt sitting up in bed eating breakfast at time of visit this AM. C/o nausea without vomiting. Reports last BM ~1 wk ago, although noted pt refusing Miralax & Colace. Numerous food preferences voiced. Diet: Regular, Judah BID No new wt; last wt: 175# (02/09) Labs reviewed Meds noted: Zofran, Protonix, electrolyte protocol -Nutrition needs unchanged; no new wt available. -Encourage PO intake and honor food preferences; will communicate food preferences with kitchen. -Need new wt. -RD will follow up within 3 days.
--- NOTE | 2021-02-17 13:54 | NUR ---
REHAB NOTE: THANK YOU AGAIN FOR THE REFERRAL. UNFORTUNATELY, WE ARE GOING TO HAVE TO DECLINE THE PATIENT AT THIS TIME SECONDARY TO HER NOT REQUIRING ACTIVE AND ONGOING INTERVENTIONS OF MULTIPLE THERAPY DISCIPLINES IN ORDER TO BENEFIT SIGNIFICANTLY AND RETURN TO HER PRIOR LEVEL OF FUNCTION. JAMIE GREGORY RN CLINICAL LIAISON, ACUTE INPATIENT REHAB.
[2021-02-17 15:00] VITALS: BP 110/64
--- NOTE | 2021-02-17 16:48 | PN ---
PATIENT:MAINE FELIX MEDICAL RECORD: [id number] LOCATION:[address] ADMISSION DATE: 02/07/21 PROGRESS NOTE DATE OF SERVICE: 02/16/2021 SUBJECTIVE: The patient's case was discussed. OBJECTIVE: The patient has no thoughts of harming herself or others and is oriented. Her mood is angry. She is willing to accept treatment and has been more cooperative over the past few days. ASSESSMENT: 1. Major depression. 2. Polysubstance abuse. PLAN: The patient seems to have improved with the antipsychotic and antidepressant medication prescribed last week. She does not believe she is on sufficient pain medication and says she is having breakthrough pain, which objectively does not appear to be the case, but I will leave this to others to assess and medicate. With regard to her mental health issues, I am going to increase the dose of her Effexor and would continue to recommend outpatient mental health care once she is discharged from here. TRANSINT:[id number] Voice Confirmation ID: [id number] DOCUMENT ID: [id number] BRE CEE MD at 1648 CC: [id number] DICTATION DATE: 02/16/21 1714 DECORATING EQUIPMENT SETTER: 02/17/21 0047 ADM IN [facility] [address] [place] [address]
[2021-02-17 20:00] VITALS: BP 131/76
--- NOTE | 2021-02-18 00:15 | NUR ---
RESTING WITH EYES CLOSED, RESPERATIONS EVEN, NO S/S DISTRESS NOTED.
--- NOTE | 2021-02-18 02:25 | MORECARE ---
CASE MANAGEMENT DISCHARGE SUMMARY PATIENT: MAINE FELIX UNIT: [id number] ADM DATE: 02/07/21 AGE: 40 : 78 SEX: F ROOM/BED: D.2124 AUTHOR: ZULEMA,DOC PHYSICIAN: REFERRING PHYSICIAN: YOLY LIAO MD DATE OF SERVICE: 02/18/21 Case Management Discharge Planning Summary CT Patient Name: MAINE FELIX Attending MD : YOLY ALEXIS Medical Record: [id number] Encounter : [id number] Facility : [address] [place] [address] Admission Date : 118:37 Center Discharge Date : [address] [place] [address] Date of : DC Plan ID : [id number] Age/Sex/Martia : 40/ F/S Printed on : 02/18/21 2:24 CT DCP Review Details Anticipated D/C: Expected LOS : 0 Case Status : INITIATED - Initial Reviewe: [id number] - Kristen Harris Initial Review: 02/07/2021 Planned Disposi: 06 - Discharged/Trans to Home Under Care of [facility] in Anticipation of Skilled Care Final Discharge: - Final Reviewer : [id number] : Kirsten Harris Final Review : 02/14/[address] Entered Date Type Reviewer 02/18/21 2:15 CT Discharge Planning Kirsten Harris Comment Patient has been denied inpatient rehab. CM will f/u with patient and [facility] to see what the d/c plan is now. CM will continue to follow and assist as needed with d/c planning / needs. 02/16/21 14:34 CT Discharge Planning Shirin Avelar Comment Asiya Alejandro is here from [facility] and visited with patient. Asiya states she will f/u with me. Referral to inpatient rehab at [facility] pending at this time. 02/16/21 13:15 CT Discharge Planning Shirin Avelar Comment Received a call from Rosario with [facility] that they are declining admission to [facility]. I spoke with the patient and she states she wants to go somewhere that can help her with PT/OT to become more independent. She consents to inpatient rehab at [facility]. States her goal is to live on her own again. Patient is very cooperative and thankful for help. I called [facility] and Katheryn called back, states "we've had a case with her before, but she is alert and oriented and able to make her own decision, so if she wants to return home she can return home no matter what the conditions are". Katheryn states they will come see her. I called Melvin with PT to re evaluate for inpatient rehab as well as OT per patient request. CM will continue to follow and assist with discharge planning/needs. 02/16/21 9:24 CT Discharge Planning Shirin Avelar Comment CM called [facility] and spoke with Rosario. Rosario states they received the referral and will look over the paper work and call me back. I also spoke with Van with the spinal cord commission and ask that they contact patient in her room concerning what other needs she may have. Van's number is [phone]. Van states that patient has a motorized wc issued to her in 2019. CM will continue to follow and assist with discharge planning/needs. 02/15/21 15:30 CT Discharge Planning Shirin Avelar Comment CM spoke with patient regarding Dr. Nance's note about going to [facility] for SN. She said she is in agreement to [facility]. I faxed clinical to [facility] and will f/u with ocean export coordinator in the morning. I asked if she had another choice and she said no. I left a packet of SNF for her MARIELA. She said that she has been in [place] before, but now wants to stay in [place]. CM will continue to follow and assist with discharge planning/needs. 02/14/21 14:25 CT Discharge Planning Naif Nichols Comment Spoke with patient regarding inability to obtain Home Health due to unsafe activity at her home. CM team asked patient if she would like to visit a fci facility while her wound healed. Patient declined SNF and declined to sign MARIELA form for refusal. CM will continue to follow and will assist as needed with dc plans/needs. 02/14/21 14:24 CT Discharge Planning Naif Nichols Comment 1300 Received phone call from Iesha of [facility]. Iesha stated that the patient was "eval'd" last week and deemed inappropriate for [facility]. Iesha stated that the patient's home is unsafe for home health nurses to visit due to drug activity. CM will notify patient. CM will continue to follow and will assist as needed with dc plans/needs. 02/14/21 10:59 CT Discharge Planning Naif Nichols Comment Met with patient to discuss DC plan and evaluate needs. Patient stated that she feels that she is not ready to DC. CM asked if she would like to appeal her DC and offered to provide information on how to appeal DC. Patient declined appeal information and declined to sign the DC IMM. CM asked the patient to confirm her address. Patient stated that her address is [facility], [place] [address]. CM asked about the patient's living conditions. Patient stated that she has a room mate but refused to disclose her room mates name. Patient does not feel unsafe to return home but feels that [facility] has not addressed her medication needs and specialised needs. CM informed patient that treating physicians have discharged her from care at this time. Patient again did not want to appeal DC. CM inquired about home health agencies to help patient with dressing changes. Patient stated that [facility] is working with her at her home but the patient could not provide more information for what they are doing for her. CM informed patient that discharging physician would like for her to have home health for dressing changes. Patient again refused to name an agency but did not refuse home health. Spoke with Iesha of [facility] in [place], [place]. Patient is not current with [facility] but Iesha welcomed a referral. Will send fax to [facility] [place]. CM team was informed that a case has been opened with [facility] for the patient. Spoke with Evans of [facility]. Evans stated that he has been working [facility] to investigate whether the patient's home is safe to return to. Evans stated that at this time he does not feel that it would be safe to discharge patient until the Pharmacometrician's office can complete an investigation on Tuesday morning. CM team queried whether it would be ok to DC patient if the patient would like to leave after the investigation even if it is determined that the home is without the amenities they are searching for. Evans stated that if the patient would like to leave then she can do so after an investigation of her home has occurred. Patient refused to sign an MARIELA for acceptance or refusal and refused to sign DC IMM. CM will continue to follow and will assist as needed with dc plans/needs. 02/13/21 16:55 CT Discharge Planning Shirin Avelar Comment Myself and Kinga Mendiola, ANDREAS went into patient's room to give her an IMM, I explained to her it was an important message from Medicare about her rights, she refuses the IMM and refuses to sign. I offered to give her the spinal cord commission number and the person I spoke with and she also refuses that. Home today via ambulance. 02/13/21 14:45 CT Discharge Planning Shirin Avelar Comment CM spoke with Kesha, chief transfer and pumphouse operator, about physician coverage for this patient. Kesha states that she had informed Yris this morning to get a discharge order from Dr. Singh and transport back to the last address on file ([address], [facility]) unless patient can provide a different address. CM informed Graciela, patient's nurse and she is going to give patient's last dose of Rocephin and verify her address. CM will continue to follow and assist with discharge planning/needs. 02/11/21 18:36 CT Discharge Planning Kirsten Steven Comment LATE ENTRY 02/09/21 CM spoke with patient at beside. Patient was very reluctant to give any information to CM. She would not give any contact information for emergency contact. She stated that she lives with someone or some people but wouldn't state whom or if she had 24 hr care. She stated that she was suppose to have [facility] but they couldn't find where she lives. She states that [facility] She states that she was in the [facility] within the last 3 weeks for the same issue. Patient did state that the last facility that she was at was in [place], [place]. She states that she has been in a facility in [facility] before. Patient wants CM to get the spinal cord commission to get her some new equipment. Including boots, electric wheelchair and other equipment. CM called and left a message at [facility] [phone] per patients request. Patient would not give CM and answer on what her discharge plan is. Whether she plans to return to her home or if she wants placement when discharged. CM will continue to follow and assist as needed with discharge planning / needs. 02/10/21 16:25 CT Discharge Planning Shiringemma Avelar Comment ANDREAS spoke with Van, he states that patient was given a power chair 2 years ago, but he will follow up with her about it. Van from spinal cord commissions number is [phone]. DCP Focus Questions & Answers DCP Screen High Risk Factors: Poor social support DCP Evaluation Patient gives permission to discuss discharge refused to give contact information plans with: (name, relationship and number) Patient's current cognitive status: *Oriented to person, place, situation, time and present Patient's ability to cope with chronic illness c. Inadequate (3+ ED visits in 6 mos., readmits within 30 days, 2+ hospital admissions in 1 yr.) Physical Status: Compromised skin integrity Physical Status: Indwelling urinary catheter Physical Status: Mobility impaired Functional screen assessment: Unable to manage ADLs without immediate ongoing assistance Partial Dependence, assistance required for: Ambulation / Mobility Baseline cognitive status: *Oriented to person, place, situation, time and present Living arrangements comments: states lives with family / friends Patient with capacity for self-care or can be No cared for in same environment as prior to hospitalization? Results of this evaluation have been discussed Patient with: Preadmission facility can/cannot provide post Can - at higher level of care than hospital level of care needs: preadmission Physical environment modification needed / Yes anticipated for discharge: Medication Management: Patient states can read and understand medication labels Pharmacy name(s): [facility] Would patient like to participate in any Care Not applicable Coordination programs (if applicable): Other Equipment comments: POWER W/C, 2 MANUAL W/C Equipment agency name and contact information: [facility]? Mental health screen: No mental health history Resources / Services in place: [facility] Resources / Services in place: Home health Resources / Services in place: Wound Care Problems identified by the patient regarding SPINAL CORD COMISSION - FOR NEW EQUIPMENT discharge: DCP Re-evaluation Would patient like to participate in any Care Not applicable Coordination programs (if applicable): [facility] MAINE FELIX MR#: [id number] /Age/Sex/[id number] /40/F /S Attending Physician Name: KESHAWN [id number] Patient Account:[id number] [facility] All edits/amendments must be made on the electronic document DICTATION DATE: 02/18/21223 RAMP AND CARGO SUPERVISOR: TREVON 02/18/21223 RPT#: [id number] DC DATE: STATUS: ADM IN [facility] [address] [place] [address] END OF REPORT
--- NOTE | 2021-02-18 03:14 | NUR ---
POCKETS AND PIECES NECKTIE OPERATOR AT BED SIDE, PT CLEANED AND REPOSITIONED IN BED.
--- NOTE | 2021-02-18 03:26 | NUR ---
OXYCODONE X2 TABLETS GIVEN AT PT REQUEST FOR C/O PAIN TO HIPS AND BACK. RATES PAIN AT AN 8 ON PAIN SCALE.
[2021-02-18 04:00] VITALS: BP 99/55
--- NOTE | 2021-02-18 04:07 | NUR ---
I have reviewed this patient and I concur with the Shift Assessment completed by the Licensed Practical Nurse today this shift.
[2021-02-18 07:54] VITALS: BP 110/64
--- NOTE | 2021-02-18 08:05 | NUR ---
PT REQUESTED PAIN PILL AT THIS TIME. PT EDUCATED REGARDING THE FREQUENCY OF THE PAIN MEDICATION INCLUDING THE LAST DOSE GIVEN AND WHEN HER NEXT DOSE IS AVAILABLE. PT STATED UNDERSTANDING.
--- NOTE | 2021-02-18 09:11 | NUR ---
PT GIVEN AM MEDS INCLUDING PRN PAIN MEDICATION. AIDE IN ROOM ASSITING WITH CARE. PT STATES THERAPY IS TO COME GET HER WHEN THEY ARE READY, NURSE STATES SHE WILL TALK WITH CSE MANGER REGARDING DISCHARGE PLAN. NO FURTHER QUESTIONS OR NEEDS VOICED. CLWR.
[2021-02-18 11:45] VITALS: BP 114/66
--- NOTE | 2021-02-18 12:35 | MORECARE ---
CASE MANAGEMENT DISCHARGE SUMMARY PATIENT: MAINE FELIX UNIT: [id number] ADM DATE: 02/07/21 AGE: 40 : 78 SEX: F ROOM/BED: D.3994 AUTHOR: ZULEMA,DOC PHYSICIAN: REFERRING PHYSICIAN: YOLY LIAO MD DATE OF SERVICE: 02/18/21 Case Management Discharge Planning Summary CT Patient Name: MAINE FELIX Attending MD : YOLY ALEXIS Medical Record: [id number] Encounter : [id number] Facility : [address] [place] [address] Admission Date : 118:37 Center Discharge Date : [address] [place] [address] Date of : DC Plan ID : [id number] Age/Sex/Martia : 40/ F/S Printed on : 02/18/21 12:33 CT DCP Review Details Anticipated D/C: Expected LOS : 0 Case Status : INITIATED - Initial Reviewe: [id number] - Kirsten Harris Initial Review: 02/07/2021 Planned Disposi: 06 - Discharged/Trans to Home Under Care of Organized Home Health Service in Anticipation of Skilled Care Final Discharge: - Final Reviewer : [id number] : Kirsten Harris Final Review : 02/14/[address] Entered Date Type Reviewer 02/18/21 12:22 CT Discharge Planning Kirsten Harris Comment CM called Asiya Michel with [facility] [phone] ext [phone] and [phone]. CM left message on both phones for her to call. Patient has been denied inpatient rehab and no other plan other d/c home. CM awaiting call back from [facility]. 02/18/21 2:15 CT Discharge Planning Kirsten Harris Comment Patient has been denied inpatient rehab. CM will f/u with patient and [facility] to see what the d/c plan is now. CM will continue to follow and assist as needed with d/c planning / needs. 02/16/21 14:34 CT Discharge Planning Shirin Avelar Comment Asiya Alejandro is here from [facility] and visited with patient. Asiya states she will f/u with me. Referral to inpatient rehab at [facility] pending at this time. 02/16/21 13:15 CT Discharge Planning Shirin Avelar Comment Received a call from Rosario with [facility] that they are declining admission to [facility]. I spoke with the patient and she states she wants to go somewhere that can help her with PT/OT to become more independent. She consents to inpatient rehab at [facility]. States her goal is to live on her own again. Patient is very cooperative and thankful for help. I called [facility] and Katheryn called back, states "we've had a case with her before, but she is alert and oriented and able to make her own decision, so if she wants to return home she can return home no matter what the conditions are". Katheryn states they will come see her. I called Melvin with PT to re evaluate for inpatient rehab as well as OT per patient request. CM will continue to follow and assist with discharge planning/needs. 02/16/21 9:24 CT Discharge Planning Shirin Avelar Comment CM called [facility] and spoke with Rosario. Rosario states they received the referral and will look over the paper work and call me back. I also spoke with Van with the spinal cord commission and ask that they contact patient in her room concerning what other needs she may have. Van's number is [phone]. Van states that patient has a motorized wc issued to her in 2019. CM will continue to follow and assist with discharge planning/needs. 02/15/21 15:30 CT Discharge Planning Shirin Avelar Comment CM spoke with patient regarding Dr. Nance's note about going to [facility] for SN. She said she is in agreement to [facility]. I faxed clinical to [facility] and will f/u with assistant director of admissions in the morning. I asked if she had another choice and she said no. I left a packet of SNF for her MARIELA. She said that she has been in [place] before, but now wants to stay in [place]. CM will continue to follow and assist with discharge planning/needs. 02/14/21 14:25 CT Discharge Planning Naif Nichols Comment Spoke with patient regarding inability to obtain Home Health due to unsafe activity at her home. CM team asked patient if she would like to visit a fci facility while her wound healed. Patient declined SNF and declined to sign MARIELA form for refusal. CM will continue to follow and will assist as needed with dc plans/needs. 02/14/21 14:24 CT Discharge Planning Naif Nichols Comment 1300 Received phone call from Iesha of [facility]. Iesha stated that the patient was "eval'd" last week and deemed inappropriate for [facility]. Iesha stated that the patient's home is unsafe for home health nurses to visit due to drug activity. CM will notify patient. CM will continue to follow and will assist as needed with dc plans/needs. 02/14/21 10:59 CT Discharge Planning Naif Nichols Comment Met with patient to discuss DC plan and evaluate needs. Patient stated that she feels that she is not ready to DC. CM asked if she would like to appeal her DC and offered to provide information on how to appeal DC. Patient declined appeal information and declined to sign the DC IMM. CM asked the patient to confirm her address. Patient stated that her address is [address] [place] [address] [address], [place] [address]. CM asked about the patient's living conditions. Patient stated that she has a room mate but refused to disclose her room mates name. Patient does not feel unsafe to return home but feels that [facility] has not addressed her medication needs and specialised needs. CM informed patient that treating physicians have discharged her from care at this time. Patient again did not want to appeal DC. CM inquired about home health agencies to help patient with dressing changes. Patient stated that [facility] is working with her at her home but the patient could not provide more information for what they are doing for her. CM informed patient that discharging physician would like for her to have home health for dressing changes. Patient again refused to name an agency but did not refuse home health. Spoke with Iesha of [facility] in [place], [place]. Patient is not current with [facility] but Iesha welcomed a referral. Will send fax to [facility]. CM team was informed that a case has been opened with [facility] for the patient. Spoke with Evans of [facility]. Evans stated that he has been working with the [facility]'s department to investigate whether the patient's home is safe to return to. Evans stated that at this time he does not feel that it would be safe to discharge patient until the [employer]'s office can complete an investigation on Tuesday morning. CM team queried whether it would be ok to DC patient if the patient would like to leave after the investigation even if it is determined that the home is without the amenities they are searching for. Evans stated that if the patient would like to leave then she can do so after an investigation of her home has occurred. Patient refused to sign an MARIELA for acceptance or refusal and refused to sign DC IMM. CM will continue to follow and will assist as needed with dc plans/needs. 02/13/21 16:55 CT Discharge Planning Shirin Avelar Comment Myself and Kinga Mendiola, ANDREAS went into patient's room to give her an IMM, I explained to her it was an important message from Medicare about her rights, she refuses the IMM and refuses to sign. I offered to give her the spinal cord commission number and the person I spoke with and she also refuses that. Home today via ambulance. 02/13/21 14:45 CT Discharge Planning Shirin Avelar Comment CM spoke with Kesha, warehouse puller, about physician coverage for this patient. Kesha states that she had informed Yris this morning to get a discharge order from Dr. Singh and transport back to the last address on file ([address] [place] [address] [address], [facility]) unless patient can provide a different address. CM informed Graciela, patient's nurse and she is going to give patient's last dose of Rocephin and verify her address. CM will continue to follow and assist with discharge planning/needs. 02/11/21 18:36 CT Discharge Planning Kirsten Samuelsr Comment LATE ENTRY 02/09/21 CM spoke with patient at beside. Patient was very reluctant to give any information to CM. She would not give any contact information for emergency contact. She stated that she lives with someone or some people but wouldn't state whom or if she had 24 hr care. She stated that she was suppose to have [facility] but they couldn't find where she lives. She states that her home health was through [facility] ([facility] She states that she was in the [facility] within the last 3 weeks for the same issue. Patient did state that the last facility that she was at was in [place], [place]. She states that she has been in a facility in [facility] before. Patient wants CM to get the spinal cord commission to get her some new equipment. Including boots, electric wheelchair and other equipment. CM called and left a message at [facility] [phone] per patients request. Patient would not give CM and answer on what her discharge plan is. Whether she plans to return to her home or if she wants placement when discharged. CM will continue to follow and assist as needed with discharge planning / needs. 02/10/21 16:25 CT Discharge Planning Shirin Callawaylyssa Comment CM spoke with Van, he states that patient was given a power chair 2 years ago, but he will follow up with her about it. Van from spinal cord commissions number is [phone]. DCP Focus Questions & Answers DCP Screen High Risk Factors: Poor social support DCP Evaluation Patient's ability to cope with chronic illness c. Inadequate (3+ ED visits in 6 mos., readmits within 30 days, 2+ hospital admissions in 1 yr.) Patient's current cognitive status: *Oriented to person, place, situation, time and present Patient gives permission to discuss discharge refused to give contact information plans with: (name, relationship and number) Functional screen assessment: Unable to manage ADLs without immediate ongoing assistance Physical Status: Mobility impaired Physical Status: Indwelling urinary catheter Physical Status: Compromised skin integrity Partial Dependence, assistance required for: Ambulation / Mobility Results of this evaluation have been discussed Patient with: Patient with capacity for self-care or can be No cared for in same environment as prior to hospitalization? Living arrangements comments: states lives with family / friends Baseline cognitive status: *Oriented to person, place, situation, time and present Physical environment modification needed / Yes anticipated for discharge: Preadmission facility can/cannot provide post Can - at higher level of care than hospital level of care needs: preadmission Medication Management: Patient states can read and understand medication labels Pharmacy name(s): [facility] Would patient like to participate in any Care Not applicable Coordination programs (if applicable): Other Equipment comments: POWER W/C, 2 MANUAL W/C Equipment agency name and contact information: [facility]? Mental health screen: No mental health history Resources / Services in place: Wound Care Resources / Services in place: Home health Resources / Services in place: [facility] Problems identified by the patient regarding SPINAL CORD COMISSION - FOR NEW EQUIPMENT discharge: DCP Re-evaluation Would patient like to participate in any Care Not applicable Coordination programs (if applicable): [facility] MAINE FELIX MR#: [id number] /Age/Sex/[id number] /40/F /S Attending Physician Name: KESHAWN [id number] [id number] [facility] 1 All edits/amendments must be made on the electronic document DICTATION DATE: 02/18/21 123 [address] FSCM DEVELOPER: TREVON 02/18/21 1233 RPT#: [id number] DC DATE: STATUS: ADM IN [facility] [address] [place] [address] END OF REPORT
[2021-02-18 15:07] VITALS: BP 120/66
--- NOTE | 2021-02-18 15:27 | NUR ---
PT GIVEN SCHEDULED MEDS AND PRN MEDICATION D/T PAIN TO BACK AND HIPS. PT ASSISTED OFF BED ACEVEDO, NO BM. PT DENIES ANY FURTHER NEEDS. PT APPRECIATIVE. CLWR.
--- NOTE | 2021-02-18 17:06 | NUR ---
D/C INSTRUCTIONS GIVEN. PT STATES UNDERSTANDING. [address]. NEW STAT LOCK PLACED. NO QUESTIONS VOICED. CLWR
--- NOTE | 2021-02-18 17:20 | NUR ---
D.C INSTRUCTIONS GIVEN AT THIS TIME, PT STATES UNDERSTANDING AND STATES SHE HAS SOMEONE IN HER HOME THAT CAN TAKE HER TO FOLLOW UP APPOINTMENTS. PT RR EVEN NON LABORED. NO DISTRESS NOTED, ALL BELONGINGS IN BAG. PT WAS GIVEN BED BATH AND HAIR WASHED PRIOR TO D/C INSTRUCTIONS. PT STATES APPRECIATION.
--- NOTE | 2021-02-18 17:47 | NUR ---
[facility] WAS CALLED BY [facility] FOR TRANSPORTATION HOME.
--- NOTE | 2021-02-18 19:29 | NUR ---
IN BED, WAITING ON [facility] TO TRANSFER PT HOME.
--- NOTE | 2021-02-18 19:53 | NUR ---
[facility] HERE TO PICK PT UP.
--- NOTE | 2021-02-18 20:21 | NUR ---
PT LEFT VIA AMBULANCE.
--- NOTE | 2021-02-19 03:28 | MORECARE ---
CASE MANAGEMENT DISCHARGE SUMMARY PATIENT: MAINE FELIX UNIT: [id number] ADM DATE: 02/07/21 AGE: 40 : 78 SEX: F ROOM/BED: D.8294 AUTHOR: ZULEMA,DOC PHYSICIAN: REFERRING PHYSICIAN: YOLY LIAO MD DATE OF SERVICE: 02/19/21 Case Management Discharge Planning Summary CT Patient Name: MAINE FELIX Attending MD : YOLY ALEXIS Medical Record: [id number] Encounter : [id number] Facility : [address] [place] [address] Medical Admission Date : 118:37 Center Discharge Date : 02/18/[address] [place] [address] Date of : DC Plan ID : [id number] Age/Sex/Martia : 40/ F/S Printed on : 02/19/21 3:27 CT DCP Review Details Anticipated D/C: Expected LOS : 0 Case Status : INITIATED - Initial Reviewe: [id number] - Kirsten Harris Initial Review: 02/07/2021 Planned Disposi: 06 - Discharged/Trans to Home Under Care of Organized Home Health Service in Anticipation of Skilled Care Final Discharge: - Final Reviewer : [id number] : Kirsten Harris Final Review : 02/14/[address] Entered Date Type Reviewer 02/18/21 12:22 CT Discharge Planning Kirsten Harris Comment CM called Asiya Michel with [facility] [phone] ext [phone] and [phone]. CM left message on both phones for her to call. Patient has been denied inpatient rehab and no other plan other d/c home. CM awaiting call back from [facility]. 02/18/21 2:15 CT Discharge Planning Kirsten Harris Comment Patient has been denied inpatient rehab. CM will f/u with patient and [facility] to see what the d/c plan is now. CM will continue to follow and assist as needed with d/c planning / needs. 02/16/21 14:34 CT Discharge Planning Shirin Avelar Comment Asiya Alejandro is here from [facility] and visited with patient. Asiya states she will f/u with me. Referral to inpatient rehab at [facility] pending at this time. 02/16/21 13:15 CT Discharge Planning Shirin Avelar Comment Received a call from Rosario with [facility] that they are declining admission to [facility]. I spoke with the patient and she states she wants to go somewhere that can help her with PT/OT to become more independent. She consents to inpatient rehab at [facility]. States her goal is to live on her own again. Patient is very cooperative and thankful for help. I called [facility] and Katheryn called back, states "we've had a case with her before, but she is alert and oriented and able to make her own decision, so if she wants to return home she can return home no matter what the conditions are". Katheryn states they will come see her. I called Melvin with PT to re evaluate for inpatient rehab as well as OT per patient request. CM will continue to follow and assist with discharge planning/needs. 02/16/21 9:24 CT Discharge Planning Shirin Avelar Comment CM called [facility] and spoke with Rosario. Rosario states they received the referral and will look over the paper work and call me back. I also spoke with Van with the spinal cord commission and ask that they contact patient in her room concerning what other needs she may have. Van's number is [phone]. Van states that patient has a motorized wc issued to her in 2019. CM will continue to follow and assist with discharge planning/needs. 02/15/21 15:30 CT Discharge Planning Shirin Avelar Comment CM spoke with patient regarding Dr. Nance's note about going to [facility] for SN. She said she is in agreement to [facility]. I faxed clinical to [facility] and will f/u with customer relations coordinator in the morning. I asked if she had another choice and she said no. I left a packet of SNF for her MARIELA. She said that she has been in [employer] before, but now wants to stay in [place]. CM will continue to follow and assist with discharge planning/needs. 02/14/21 14:25 CT Discharge Planning Naif Nichols Comment Spoke with patient regarding inability to obtain Home Health due to unsafe activity at her home. CM team asked patient if she would like to visit a detention facility while her wound healed. Patient declined SNF and declined to sign MARIELA form for refusal. CM will continue to follow and will assist as needed with dc plans/needs. 02/14/21 14:24 CT Discharge Planning Naif Nichols Comment 1300 Received phone call from Iesha of [facility]. Iesha stated that the patient was "eval'd" last week and deemed inappropriate for HHS. Iesha stated that the patient's home is unsafe for home health nurses to visit due to drug activity. CM will notify patient. CM will continue to follow and will assist as needed with dc plans/needs. 02/14/21 10:59 CT Discharge Planning Naif Nichols Comment Met with patient to discuss DC plan and evaluate needs. Patient stated that she feels that she is not ready to DC. CM asked if she would like to appeal her DC and offered to provide information on how to appeal DC. Patient declined appeal information and declined to sign the DC IMM. CM asked the patient to confirm her address. Patient stated that her address is [address] [place] [address] [address], [place] [address]. CM asked about the patient's living conditions. Patient stated that she has a room mate but refused to disclose her room mates name. Patient does not feel unsafe to return home but feels that [facility] has not addressed her medication needs and specialised needs. CM informed patient that treating physicians have discharged her from care at this time. Patient again did not want to appeal DC. CM inquired about home health agencies to help patient with dressing changes. Patient stated that [facility] is working with her at her home but the patient could not provide more information for what they are doing for her. CM informed patient that discharging physician would like for her to have home health for dressing changes. Patient again refused to name an agency but did not refuse home health. Spoke with Iesha of [facility] in [place], [place]. Patient is not current with [facility] but Iesha welcomed a referral. Will send fax to [facility]. CM team was informed that a case has been opened with [facility] for the patient. Spoke with Evans of [facility]. Evans stated that he has been working with the [facility]'s department to investigate whether the patient's home is safe to return to. Evans stated that at this time he does not feel that it would be safe to discharge patient until the Parachute Cushion Installer's office can complete an investigation on Tuesday morning. CM team queried whether it would be ok to DC patient if the patient would like to leave after the investigation even if it is determined that the home is without the amenities they are searching for. Evans stated that if the patient would like to leave then she can do so after an investigation of her home has occurred. Patient refused to sign an MARIELA for acceptance or refusal and refused to sign DC IMM. CM will continue to follow and will assist as needed with dc plans/needs. 02/13/21 16:55 CT Discharge Planning Shirin Avelar Comment Myself and Kinga Mendiola, ANDREAS went into patient's room to give her an IMM, I explained to her it was an important message from Medicare about her rights, she refuses the IMM and refuses to sign. I offered to give her the spinal cord commission number and the person I spoke with and she also refuses that. Home today via ambulance. 02/13/21 14:45 CT Discharge Planning Shirin Avelar Comment CM spoke with Kesha, assistant executive housekeeper, about physician coverage for this patient. Kesha states that she had informed Yris this morning to get a discharge order from Dr. Singh and transport back to the last address on file ([address] [place] [address] [address], [facility]) unless patient can provide a different address. CM informed Graciela, patient's nurse and she is going to give patient's last dose of Rocephin and verify her address. CM will continue to follow and assist with discharge planning/needs. 02/11/21 18:36 CT Discharge Planning Kirsten Harris Comment LATE ENTRY 02/09/21 CM spoke with patient at beside. Patient was very reluctant to give any information to CM. She would not give any contact information for emergency contact. She stated that she lives with someone or some people but wouldn't state whom or if she had 24 hr care. She stated that she was suppose to have [facility] but they couldn't find where she lives. She states that her home health was through [facility] (? [facility]?) She states that she was in the [facility] within the last 3 weeks for the same issue. Patient did state that the last facility that she was at was in [place], [place]. She states that she has been in a facility in [facility] before. Patient wants CM to get the spinal cord commission to get her some new equipment. Including boots, electric wheelchair and other equipment. CM called and left a message at [facility] Spinal cord [facility] [phone] per patients request. Patient would not give CM and answer on what her discharge plan is. Whether she plans to return to her home or if she wants placement when discharged. CM will continue to follow and assist as needed with discharge planning / needs. 02/10/21 16:25 CT Discharge Planning Shirin Avelar Comment CM spoke with Van, he states that patient was given a power chair 2 years ago, but he will follow up with her about it. Van from spinal cord [facility] number is [phone]. DCP Focus Questions & Answers DCP Screen High Risk Factors: Poor social support DCP Evaluation Patient gives permission to discuss discharge refused to give contact information plans with: (name, relationship and number) Patient's current cognitive status: *Oriented to person, place, situation, time and present Patient's ability to cope with chronic illness c. Inadequate (3+ ED visits in 6 mos., readmits within 30 days, 2+ hospital admissions in 1 yr.) Physical Status: Compromised skin integrity Physical Status: Indwelling urinary catheter Physical Status: Mobility impaired Functional screen assessment: Unable to manage ADLs without immediate ongoing assistance Partial Dependence, assistance required for: Ambulation / Mobility Baseline cognitive status: *Oriented to person, place, situation, time and present Living arrangements comments: states lives with family / friends Patient with capacity for self-care or can be No cared for in same environment as prior to hospitalization? Results of this evaluation have been discussed Patient with: Preadmission facility can/cannot provide post Can - at higher level of care than hospital level of care needs: preadmission Physical environment modification needed / Yes anticipated for discharge: Medication Management: Patient states can read and understand medication labels Pharmacy name(s): [facility] Would patient like to participate in any Care Not applicable Coordination programs (if applicable): Other Equipment comments: POWER W/C, 2 MANUAL W/C Equipment agency name and contact information: [facility]? Mental health screen: No mental health history Resources / Services in place: Area agency on aging Resources / Services in place: Home health Resources / Services in place: Wound Care Problems identified by the patient regarding SPINAL CORD COMISSION - FOR NEW EQUIPMENT discharge: DCP Re-evaluation Would patient like to participate in any Care Not applicable Coordination programs (if applicable): [facility] MAINE FELIX MR#: [id number] /Age/Sex/Kqyogu46-Kiw-93 /40/F /S Attending Physician Name: KESHAWN [id number] Patient Account:[id number] [facility] Page -1 of 1 All edits/amendments must be made on the electronic document DICTATION DATE: 02/19/21326 DIRECTOR OF COLLECTIONS: TREVON 02/19/21326 RPT#: [id number] DC DATE:02/18/21 STATUS: DIS IN [facility] [address] [place] [address] END OF REPORT
--- NOTE | 2021-02-19 20:40 | MORECARE ---
CASE MANAGEMENT DISCHARGE SUMMARY PATIENT: MAINE FELIX UNIT: [id number] ADM DATE: 02/07/21 AGE: 40 : 78 SEX: F ROOM/BED: D.8204 AUTHOR: ZULEMA,DOC PHYSICIAN: REFERRING PHYSICIAN: YOLY LIAO MD DATE OF SERVICE: 02/19/21 Case Management Discharge Planning Summary CT Patient Name: MAINE FELIX Attending MD : YOLY ALEXIS Medical Record: [id number] Encounter : [id number] Facility : [address] [place] [address] Medical Admission Date : 118:37 Center Discharge Date : 02/18/[address] [place] [address] Date of : DC Plan ID : [id number] Age/Sex/Martia : 40/ F/S Printed on : 02/19/21 20:39 CT DCP Review Details Anticipated D/C: Expected LOS : 0 Case Status : INITIATED - Initial Reviewe: [id number] - Kirsten Harris Initial Review: 02/07/2021 Planned Disposi: 06 - Discharged/Trans to Home Under Care of Organized Home Health Service in Anticipation of Skilled Care Final Discharge: - Final Reviewer : [id number] : Kirsten Harris Final Review : 02/14/[address] Entered Date Type Reviewer 02/18/21 12:22 CT Discharge Planning Kirsten Harris Comment CM called Asiya Michel with [facility] [phone] ext [phone] and [phone]. CM left message on both phones for her to call. Patient has been denied inpatient rehab and no other plan other d/c home. CM awaiting call back from [facility]. 02/18/21 2:15 CT Discharge Planning Kirsten Harris Comment Patient has been denied inpatient rehab. CM will f/u with patient and [facility] to see what the d/c plan is now. CM will continue to follow and assist as needed with d/c planning / needs. 02/16/21 14:34 CT Discharge Planning Shirin Avelar Comment Asiya Alejandro is here from [facility] and visited with patient. Asiya states she will f/u with me. Referral to inpatient rehab at [facility] pending at this time. 02/16/21 13:15 CT Discharge Planning Shirin Avelar Comment Received a call from Rosario with [facility] that they are declining admission to [facility]. I spoke with the patient and she states she wants to go somewhere that can help her with PT/OT to become more independent. She consents to inpatient rehab at [facility]. States her goal is to live on her own again. Patient is very cooperative and thankful for help. I called [facility] and Katheryn called back, states "we've had a case with her before, but she is alert and oriented and able to make her own decision, so if she wants to return home she can return home no matter what the conditions are". Katheryn states they will come see her. I called Melvin with PT to re evaluate for inpatient rehab as well as OT per patient request. CM will continue to follow and assist with discharge planning/needs. 02/16/21 9:24 CT Discharge Planning Shirin Avelar Comment CM called [facility] and spoke with Rosario. Rosario states they received the referral and will look over the paper work and call me back. I also spoke with Van with the spinal cord commission and ask that they contact patient in her room concerning what other needs she may have. Van's number is [phone]. Avn states that patient has a motorized wc issued to her in 2019. CM will continue to follow and assist with discharge planning/needs. 02/15/21 15:30 CT Discharge Planning Shirin Avelar Comment CM spoke with patient regarding Dr. Nance's note about going to [facility] for SN. She said she is in agreement to [facility]. I faxed clinical to [facility] and will f/u with software development coordinator in the morning. I asked if she had another choice and she said no. I left a packet of SNF for her MARIELA. She said that she has been in [place] before, but now wants to stay in [place]. CM will continue to follow and assist with discharge planning/needs. 02/14/21 14:25 CT Discharge Planning Naif Nichols Comment Spoke with patient regarding inability to obtain Home Health due to unsafe activity at her home. CM team asked patient if she would like to visit a nursing home facility while her wound healed. Patient declined SNF and declined to sign MARIELA form for refusal. CM will continue to follow and will assist as needed with dc plans/needs. 02/14/21 14:24 CT Discharge Planning Naif Nichols Comment 1300 Received phone call from Iesha of [facility]. Iesha stated that the patient was "eval'd" last week and deemed inappropriate for HHS. Iesha stated that the patient's home is unsafe for home health nurses to visit due to drug activity. CM will notify patient. CM will continue to follow and will assist as needed with dc plans/needs. 02/14/21 10:59 CT Discharge Planning Naif Nichols Comment Met with patient to discuss DC plan and evaluate needs. Patient stated that she feels that she is not ready to DC. CM asked if she would like to appeal her DC and offered to provide information on how to appeal DC. Patient declined appeal information and declined to sign the DC IMM. CM asked the patient to confirm her address. Patient stated that her address is [address] [place] [address] [address], [place] [address]. CM asked about the patient's living conditions. Patient stated that she has a room mate but refused to disclose her room mates name. Patient does not feel unsafe to return home but feels that [facility] has not addressed her medication needs and specialised needs. CM informed patient that treating physicians have discharged her from care at this time. Patient again did not want to appeal DC. CM inquired about home health agencies to help patient with dressing changes. Patient stated that [facility] is working with her at her home but the patient could not provide more information for what they are doing for her. CM informed patient that discharging physician would like for her to have home health for dressing changes. Patient again refused to name an agency but did not refuse home health. Spoke with Iesha of [facility] in [place], [place]. Patient is not current with [facility] but Iesha welcomed a referral. Will send fax to [facility]. CM team was informed that a case has been opened with [facility] for the patient. Spoke with Evans of [facility]PS. Evans stated that he has been working with the [facility]'s department to investigate whether the patient's home is safe to return to. Evans stated that at this time he does not feel that it would be safe to discharge patient until the Sheriff'S Officer's office can complete an investigation on Tuesday morning. CM team queried whether it would be ok to DC patient if the patient would like to leave after the investigation even if it is determined that the home is without the amenities they are searching for. Evans stated that if the patient would like to leave then she can do so after an investigation of her home has occurred. Patient refused to sign an MARIELA for acceptance or refusal and refused to sign DC IMM. CM will continue to follow and will assist as needed with dc plans/needs. 02/13/21 16:55 CT Discharge Planning Shirin Avelar Comment Myself and Kniga Mendiola, ANDREAS went into patient's room to give her an IMM, I explained to her it was an important message from Medicare about her rights, she refuses the IMM and refuses to sign. I offered to give her the spinal cord commission number and the person I spoke with and she also refuses that. Home today via ambulance. 02/13/21 14:45 CT Discharge Planning Shirin Avelar Comment CM spoke with Kesha, transfer and pumphouse operator, about physician coverage for this patient. Kesha states that she had informed Yris this morning to get a discharge order from Dr. Singh and transport back to the last address on file ([address] [place] [address] [address] [facility]) unless patient can provide a different address. CM informed Graciela, patient's nurse and she is going to give patient's last dose of Rocephin and verify her address. CM will continue to follow and assist with discharge planning/needs. 02/11/21 18:36 CT Discharge Planning Kirsten Harris Comment LATE ENTRY 02/09/21 CM spoke with patient at beside. Patient was very reluctant to give any information to CM. She would not give any contact information for emergency contact. She stated that she lives with someone or some people but wouldn't state whom or if she had 24 hr care. She stated that she was suppose to have [facility] but they couldn't find where she lives. She states that her home health was through [facility] on A[facility] (? [facility]?) She states that she was in the [facility] within the last 3 weeks for the same issue. Patient did state that the last facility that she was at was in [place], [place]. She states that she has been in a facility in [facility] before. Patient wants CM to get the spinal cord commission to get her some new equipment. Including boots, electric wheelchair and other equipment. CM called and left a message at [facility] Spinal cord Commission [phone] per patients request. Patient would not give CM and answer on what her discharge plan is. Whether she plans to return to her home or if she wants placement when discharged. CM will continue to follow and assist as needed with discharge planning / needs. 02/10/21 16:25 CT Discharge Planning Shirin Avelar Comment CM spoke with Van, he states that patient was given a power chair 2 years ago, but he will follow up with her about it. Van from spinal cord [facility] number is [phone]. DCP Focus Questions & Answers DCP Screen High Risk Factors: Poor social support DCP Evaluation Patient's ability to cope with chronic illness c. Inadequate (3+ ED visits in 6 mos., readmits within 30 days, 2+ hospital admissions in 1 yr.) Patient's current cognitive status: *Oriented to person, place, situation, time and present Patient gives permission to discuss discharge refused to give contact information plans with: (name, relationship and number) Functional screen assessment: Unable to manage ADLs without immediate ongoing assistance Physical Status: Mobility impaired Physical Status: Indwelling urinary catheter Physical Status: Compromised skin integrity Partial Dependence, assistance required for: Ambulation / Mobility Results of this evaluation have been discussed Patient with: Patient with capacity for self-care or can be No cared for in same environment as prior to hospitalization? Living arrangements comments: states lives with family / friends Baseline cognitive status: *Oriented to person, place, situation, time and present Physical environment modification needed / Yes anticipated for discharge: Preadmission facility can/cannot provide post Can - at higher level of care than hospital level of care needs: preadmission Medication Management: Patient states can read and understand medication labels Pharmacy name(s): [facility] Would patient like to participate in any Care Not applicable Coordination programs (if applicable): Other Equipment comments: POWER W/C, 2 MANUAL W/C Equipment agency name and contact information: [facility]? Mental health screen: No mental health history Resources / Services in place: Wound Care Resources / Services in place: Home health Resources / Services in place: Area agency on aging Problems identified by the patient regarding SPINAL CORD COMISSION - FOR NEW EQUIPMENT discharge: DCP Re-evaluation Would patient like to participate in any Care Not applicable Coordination programs (if applicable): [facility] MAINE FELIX MR#: [id number] /Age/Sex/Heduml89-Qox-56 /40/F /S Attending Physician Name: KESHAWN [id number] Patient Account:[id number] [facility] Page -1 of 1 All edits/amendments must be made on the electronic document DICTATION DATE: 02/19/212037 TECHNICAL SERVICE REP: TREVON 02/19/212037 RPT#: [id number] DC DATE:02/18/21 STATUS: DIS IN [facility] [address] [place] [address] END OF REPORT
== END 2021-02-18 20:21 | disposition home health service (06) | DRG 593 ==
LOC: D.ER 16:05 → D.M2 18:37
PROVIDERS: Family Medicine; ADMIT Family Medicine; ATTEND Family Medicine
DX: L89.153 Pressure ulcer of sacral region, stage 3 (principal); G82.20 Paraplegia, unspecified; I11.0 Hypertensive heart disease with heart failure; I50.9 Heart failure, unspecified; K59.00 Constipation, unspecified; F32.9 Major depressive disorder, single episode, unspecified; L08.89 Other specified local infections of the skin and subcutaneous tissue; B96.20 Unspecified Escherichia coli [E. coli] as the cause of diseases classified elsewhere